=== PATIENT | female | born 1980 | race Caucasian/White ===

== ENCOUNTER 2017-08-19 19:56 | Inpatient (IN) | payer MEDICAID ==
[~2017-08-19] VITALS: Ht 160 cm; Wt 52.0 kg
[~2017-08-19 19:56] MED LIST: IBUP600 PO; OXYC1SOL5 PO; PERI8.6T PO; PREN0.01 PO
[2017-08-19] MEDS: LACTATED RINGER'S 1000 ML INJ 1,000 ML IV SCH ×2 (20:00→21:41)
[2017-08-19 20:07] VITALS: BP 128/90; PULSE 106
[2017-08-19] MEDS ORDERED: SODIUM CHLORIDE 0.9% FLUSH 10 ML FLUSH IV FLUSH PRN ×2 (20:30→21:00)
--- NOTE | 2017-08-19 20:31 | PD ---
HPI Chief Complaint Vaginal bleeding Travel History International Travel<30 Days: No Contact w/Intl Traveler<30Days: No Known Affected Area: No History of Present Illness HPI 36-year-old , IUP at 34.5 care with Andree Chavez and complicated by history of prior delivery, regular crack cocaine use, tobacco use The patient presents reporting vaginal bleeding that started at 7 PM. She used crack cocaine which she smokes approximately an hour prior to the onset of vaginal bleeding. She reports that this was a gush of bleeding so she called EMS. She reports that she had occasional contractions today which were irregular but increased about 5 PM. She is unable to quantify how frequent she is having these contractions. There are no attempted treatments or alleviating factors. She reports good movement. She denies any leaking of fluid. Weeks Gestation: 34 Para: 3 : 9 Miscarriage: 1 : 4 History Past Medical History Medical History: Denies Significant Hx Obstetric History Obstetric History 05 3 2 C/S 1 SAB 1 EAB 4 Past Surgical History Narrative Surgical C/S x1, hernia repair Family History Narrative Family History DM, HTN, CVA Social History Alcohol Use: No Substance Abuse: Yes Allergies-Medications (Allergen,Severity, Reaction): Coded Allergies: No Known Allergies (Verified , 08/21/14) Home Meds Active Scripts Sennosides-Docusate Sodium (Rose-Colace 8.6-50 mg) 1 Tab Tab, 2 TAB PO BID Y for CONSTIPATION for 30 Days, TAB Prov:Savanna Parra MD, R3 02/12/16 Oxycodone W/ Acetaminophen (Oxycodone/Acetaminophen 5-325 mg/5Ml) 5 mg/325 mg Tab, 1 TAB PO Q4H Y for PAIN SCALE 3 TO 5, #20 TAB Prov:Savanna Parra MD, R3 02/12/16 Ibuprofen (Motrin 600 Mg Tab) 600 Mg Tab, 600 MG PO Q6H Y for CRAMPING for 30 Days, TAB Prov:Savanna Parra MD, R3 02/12/16 Reported Medications Multivit/Min/Fol Ac/Iron/Pren ( Vit ( Plus)) Tab, 1 TAB PO DAILY, TAB 02/09/16 Review of Systems Except as stated in HPI: all other systems reviewed are Neg (Complete ROS was performed) Genitourinary: Vaginal Bleeding Physical Exam Vital Signs Date Time Temp Pulse Resp B/P (MAP) Pulse Ox O2 Delivery O2 Flow Rate FiO2 08/19/17 20:07 106 128/90 (103) Narrative GENERAL: Well-nourished, well-developed patient. SKIN: Warm and dry. HEAD: Normocephalic and atraumatic. EYES: No scleral icterus. No injection or drainage. ENT: No nasal drainage noted. Mucous membranes pink. Airway patent. NECK: Supple, trachea midline. No JVD. CARDIOVASCULAR: Regular rate and rhythm without murmurs, gallops, or rubs. RESPIRATORY: Breath sounds equal bilaterally. No accessory muscle use. BREASTS: Deferred ABDOMEN/GI: Abdomen soft, non-tender, bowel sounds present, no rebound, no guarding Gravid GENITOURINARY: External Genitalia: intact and normal in appearance, normal BUS glands. Speculum examination was performed which showed a small amount of pooling of dark blood in the vagina approximately 15 cc. There is a small amount of dark blood at the cervical os but no brisk or active bleeding was noted. The cervix visually appeared closed and thick. SVE was performed and was closed/thick/high /posterior. FHT's: heart tones are in the 120s baseline with moderate long-term variability, good accelerations, no decelerations with category 1 tracing and reactive NST EXTREMITIES: No cyanosis or edema. BACK: Nontender without obvious deformity. NEUROLOGICAL: Awake and alert. Motor and sensory grossly within normal limits. Five out of 5 muscle strength in all muscle groups. Normal speech. Psychiatric: Grossly normal memory and affect Musculoskeletal: Grossly normal range of motion, gait, muscle strength Data Data Orders Orders Vital Signs (Adult) .ON ADMISSION (08/19/17 20:00) ^ Labor Status (08/19/17 20:00) Urinalysis - C+S If Indicated (08/19/17 20:00) ^ Non Stress Test (08/19/17 20:00) Cbc No Diff, Includes Plts (08/19/17 20:00) Comprehensive Metabolic Panel (08/19/17 20:00) Lactated Ringer's 1000 Ml Inj (Lr 1000 M (08/19/17 20:00) Ob/Psych Drug Screen, Urine (08/19/17 20:00) Admit To Inpatient (08/19/17 ) Diet Npo (08/20/17 Breakfast) Vital Signs (Adult) [id number] AWAKE (08/19/17 20:21) Heart (08/19/17 20:21) Activity Bed Rest With Brp (08/19/17 20:21) Sodium Chloride 0.9% Flush (Ns Flush) (08/19/17 21:00) Sodium Chloride 0.9% Flush (Ns Flush) (08/19/17 20:30) Us Ob Limited (08/19/17 20:21) Hold Clot (08/19/17 20:21) Inpatient Certification (08/19/17 ) Prothrombin Time / Inr (Pt) (08/19/17 20:28) Act Partial Throm Time (Ptt) (08/19/17 20:28) Fibrinogen (08/19/17 20:28) MDM Plan Assessment/plan: 1. IUP at 34.5 2. Vaginal bleeding: Vaginal bleeding occurred after cocaine use, will obtain OB ultrasound to evaluate placenta, no active bleeding noted on exam however will monitor closely. CBC and type and cross 4 units was obtained, PT and PTT were obtained. 3. Cocaine use: UDS obtained. 4. Prior delivery: Patient was consented for repeat delivery with risks benefits and alternatives discussed at length including but not limited to pain, infection, bleeding, injury to other organs like the bladder, bowels, nerves, vessels or baby, need for repeat operation, need for hysterectomy, need for blood transfusion, wound infection and breakdown and other possible complications. We discussed the indications for delivery if she continues to have heavy bleeding, if she enters active labor, or if there is concerns from the heart rate tracing. At this point the patient does not appear to be having active bleeding; however, she is izabel so will start with a dose of IV pain medicine and Vistaril. Cervical examination is closed. All of her questions were answered and consent was signed. 5. The patient desires permanent surgical sterilization: She had her papers signed on 08/12/17. We discussed this is a permanent and irreversible procedure and cannot be undone. We discussed the risks including but not limited to surgical risks as above as well as tubal regret, failure rate of approximately 1%, risk of ectopic if failure occurs. We discussed alternatives including the long-acting reversible contraceptives like Mirena and ParaGard. We discussed other options like Depo-Provera, the pill, the patch , and others. The patient is certain she desires no further biological children. 6. well-being: Reassuring testing with reactive NST and category 1 heart rate tracing. We'll continue to monitor tonight and proceed with delivery if indication of nonreassuring well-being arises or for other standard indications. 7. Tobacco use Carolyn Woodall MD Aug 19, 2017 20:31
--- NOTE | 2017-08-19 20:32 | PD ---
History of Present Illness History of Present Illness NST report Indications: IUP at 34.5, cocaine/crack use, prior section 1, vaginal bleeding heart rate tracing with heart rate in the 120s, moderate long-term variability, good accelerations, no decelerations are noted at this time the patient has a category 1 heart rate tracing and a reactive NST. Final diagnosis: IUP at 34.5, cocaine/crack use, prior section 1, vaginal bleeding, reassuring testing follow-up: Continue continuous monitoring Carolyn Woodall MD Aug 19, 2017 20:32
[2017-08-19] MEDS ORDERED: MISOPROSTOL 100 MCG TAB VAGINAL ONE (21:00)
[2017-08-19] MEDS ORDERED: SODIUM CHLORIDE 0.9% FLUSH 10 ML FLUSH IV FLUSH SCH (21:00)
[2017-08-19 21:36] LABS: HEMATOCRIT 33.3 % (35.0-46.0); MEAN CELL VOLUME 87.1 FL (80.0-100.0); MEAN CORPUSCULAR HEMOGLOBIN 28.9 PG (27.0-34.0); MEAN CORPUSCULAR HGB CONC 33.2 % (32.0-36.0); PLATELET COUNT 266 TH/MM3 (150-450); RED BLOOD COUNT 3.82 MIL/MM3 (4.00-5.30); RED CELL DISTRIBUTION WIDTH 14.5 % (11.6-17.2); REVIEW FLAG FINAL; WHITE BLOOD COUNT 17.7 TH/MM3 (4.0-11.0)
[2017-08-19] MEDS ORDERED: MORPHINE SULFATE 4 MG/ML INJ IM ONE (21:45)
[2017-08-19] MEDS ORDERED: hydrOXYzine PAMOATE 25 MG CAP PO ONE (21:45)
[2017-08-19 21:49] LABS: BLOOD, URINE LARGE (NEG); COMMENT (UR) CULT NOT INDICATED; CULTURE IF INDICATED CULT NOT INDICATED; GLUCOSE,URINE NEG (NEG); KETONE, URINE TRACE mg/dL (NEG); MUCUS URINE FEW /lpf (OCC); NITRITE,URINE NEG (NEG); SQUAMOUS EPITHELIAL CELL URINE 2 /hpf (0-5); URINE COLOR YELLOW (YELLW/STRAW)
[2017-08-19 22:11] LABS: ANION GAP 12 MEQ/L (5-15); AST (GOT) 15 U/L (15-37); BICARBONATE 20.9 MEQ/L (21.0-32.0); BLOOD UREA NITROGEN 6 MG/DL (7-18); CHLORIDE 104 MEQ/L (98-107); GLOMERULAR FILTRATION RATE 152 ML/MIN (>89); POTASSIUM 3.7 MEQ/L (3.5-5.1); SODIUM (NA) 137 MEQ/L (136-145)
[2017-08-19 22:13] LABS: ALT (GPT) 15 U/L (10-53)
[2017-08-19 22:14] LABS: ALKALINE PHOSPHATASE 121 U/L (45-117); TOTAL BILIRUBIN ADULT 0.2 MG/DL (0.2-1.0)
[2017-08-19] MEDS: SODIUM CHLORIDE 0.9% FLUSH 10 ML FLUSH IV FLUSH SCH (22:18)
[2017-08-19 23:34] LABS: APTT (PATIENT) 26.3 SEC (24.3-30.1); INTERNATIONAL NORMALIZED RATIO 0.9 RATIO; PROTHROMBIN TIME - PATIENT 9.6 SEC (9.8-11.6)
[2017-08-20] VITALS (10 sets, daily range): BP systolic 100–119; BP diastolic 52–67; PULSE 87–97; RESP 18; TEMP 98–98.7
[2017-08-20] MEDS ORDERED: MISOPROSTOL 100 MCG TAB VAGINAL PRN (01:00)
--- NOTE | 2017-08-20 01:05 | HHI.HP ---
History & Physical H&P OB HISTORY AND PHYSICAL; DATE OF ADMISSION: 08/19/17 Patient Name: Kelsey Field Unit Number: [id number] Date of : 1980 Patient Status: Admitted Inpatient Attending Doctor: Carolyn Woodall MD HPI HPI Chief Complaint Vaginal bleeding Travel History International Travel<30 Days: No Contact w/Intl Traveler<30Days: No Known Affected Area: No History of Present Illness HPI 36-year-old , IUP at 34.5 care with Andree Chavez and complicated by history of prior delivery, regular crack cocaine use, tobacco use The patient presents reporting vaginal bleeding that started at 7 PM. She used crack cocaine which she smokes approximately an hour prior to the onset of vaginal bleeding. She reports that this was a gush of bleeding so she called EMS. She reports that she had occasional contractions today which were irregular but increased about 5 PM. She is unable to quantify how frequent she is having these contractions. There are no attempted treatments or alleviating factors. She reports good movement. She denies any leaking of fluid. Weeks Gestation: 34 Para: 3 : 9 Miscarriage: 1 : 4 History (Limited) History Past Medical History Medical History: Denies Significant Hx Obstetric History Obstetric History 05 3 2 C/S 1 SAB 1 EAB 4 Past Surgical History Narrative Surgical C/S x1, hernia repair Family History Narrative Family History DM, HTN, CVA Social History Alcohol Use: No Substance Abuse: Yes Allergies-Medications Allergies-Medications (Allergen,Severity, Reaction): Coded Allergies: No Known Allergies (Verified , 08/21/14) Home Meds Active Scripts Sennosides-Docusate Sodium (Rose-Colace 8.6-50 mg) 1 Tab Tab, 2 TAB PO BID Y for CONSTIPATION for 30 Days, TAB Prov:Savanna Parra MD, R3 02/12/16 Oxycodone W/ Acetaminophen (Oxycodone/Acetaminophen 5-325 mg/5Ml) 5 mg/325 mg Tab, 1 TAB PO Q4H Y for PAIN SCALE 3 TO 5, #20 TAB Prov:Savanna Parra MD, R3 02/12/16 Ibuprofen (Motrin 600 Mg Tab) 600 Mg Tab, 600 MG PO Q6H Y for CRAMPING for 30 Days, TAB Prov:Svaanna Parra MD, R3 02/12/16 Reported Medications Multivit/Min/Fol Ac/Iron/Pren ( Vit ( Plus)) Tab, 1 TAB PO DAILY, TAB 02/09/16 ROS Review of Systems Except as stated in HPI: all other systems reviewed are Neg (Complete ROS was performed) Genitourinary: Vaginal Bleeding Physical Exam Physical Exam Vital Signs Date Time Temp Pulse Resp B/P (MAP) Pulse Ox O2 Delivery O2 Flow Rate FiO2 08/19/17 20:07 106 128/90 (103) Narrative GENERAL: Well-nourished, well-developed patient. SKIN: Warm and dry. HEAD: Normocephalic and atraumatic. EYES: No scleral icterus. No injection or drainage. ENT: No nasal drainage noted. Mucous membranes pink. Airway patent. NECK: Supple, trachea midline. No JVD. CARDIOVASCULAR: Regular rate and rhythm without murmurs, gallops, or rubs. RESPIRATORY: Breath sounds equal bilaterally. No accessory muscle use. BREASTS: Deferred ABDOMEN/GI: Abdomen soft, non-tender, bowel sounds present, no rebound, no guarding Gravid GENITOURINARY: External Genitalia: intact and normal in appearance, normal BUS glands. Speculum examination was performed which showed a small amount of pooling of dark blood in the vagina approximately 15 cc. There is a small amount of dark blood at the cervical os but no brisk or active bleeding was noted. The cervix visually appeared closed and thick. SVE was performed and was closed/thick/high /posterior. FHT's: heart tones are in the 120s baseline with moderate long-term variability, good accelerations, no decelerations with category 1 tracing and reactive NST EXTREMITIES: No cyanosis or edema. BACK: Nontender without obvious deformity. NEUROLOGICAL: Awake and alert. Motor and sensory grossly within normal limits. Five out of 5 muscle strength in all muscle groups. Normal speech. Psychiatric: Grossly normal memory and affect Musculoskeletal: Grossly normal range of motion, gait, muscle strength Data Data Data Orders Orders Vital Signs (Adult) .ON ADMISSION (08/19/17 20:00) ^ Labor Status (08/19/17 20:00) Urinalysis - C+S If Indicated (08/19/17 20:00) ^ Non Stress Test (08/19/17 20:00) Cbc No Diff, Includes Plts (08/19/17 20:00) Comprehensive Metabolic Panel (08/19/17 20:00) Lactated Ringer's 1000 Ml Inj (Lr 1000 M (08/19/17 20:00) Ob/Psych Drug Screen, Urine (08/19/17 20:00) Admit To Inpatient (08/19/17 ) Diet Npo (08/20/17 Breakfast) Vital Signs (Adult) [id number] AWAKE (08/19/17 20:21) Heart (08/19/17 20:21) Activity Bed Rest With Brp (08/19/17 20:21) Sodium Chloride 0.9% Flush (Ns Flush) (08/19/17 21:00) Sodium Chloride 0.9% Flush (Ns Flush) (08/19/17 20:30) Us Ob Limited (08/19/17 20:21) Hold Clot (08/19/17 20:21) Inpatient Certification (08/19/17 ) Prothrombin Time / Inr (Pt) (08/19/17 20:28) Act Partial Throm Time (Ptt) (08/19/17 20:28) Fibrinogen (08/19/17 20:28) MDM MDM Plan Assessment/plan: 1. IUP at 34.5 2. Vaginal bleeding: Vaginal bleeding occurred after cocaine use, will obtain OB ultrasound to evaluate placenta, no active bleeding noted on exam however will monitor closely. CBC and type and cross 4 units was obtained, PT and PTT were obtained. 3. Cocaine use: UDS obtained. 4. Prior delivery: Patient was consented for repeat delivery with risks benefits and alternatives discussed at length including but not limited to pain, infection, bleeding, injury to other organs like the bladder, bowels, nerves, vessels or baby, need for repeat operation, need for hysterectomy, need for blood transfusion, wound infection and breakdown and other possible complications. We discussed the indications for delivery if she continues to have heavy bleeding, if she enters active labor, or if there is concerns from the heart rate tracing. At this point the patient does not appear to be having active bleeding; however, she is izabel so will start with a dose of IV pain medicine and Vistaril. Cervical examination is closed. All of her questions were answered and consent was signed. 5. The patient desires permanent surgical sterilization: She had her papers signed on 08/12/17. We discussed this is a permanent and irreversible procedure and cannot be undone. We discussed the risks including but not limited to surgical risks as above as well as tubal regret, failure rate of approximately 1%, risk of ectopic if failure occurs. We discussed alternatives including the long-acting reversible contraceptives like Mirena and ParaGard. We discussed other options like Depo-Provera, the pill, the patch , and others. The patient is certain she desires no further biological children. 6. well-being: Reassuring testing with reactive NST and category 1 heart rate tracing. We'll continue to monitor tonight and proceed with delivery if indication of nonreassuring well-being arises or for other standard indications. 7. Tobacco use Carolyn Woodall MD Aug 19, 2017 20:31 Carolyn Woodall MD Aug 20, 2017 01:04
--- NOTE | 2017-08-20 01:06 | HHI.PR ---
Subjective Remarks [facility] Patient continues to have reassuring heart rate tracing with baseline in the 120s, good accelerations, no decelerations and moderate long-term variability. She has the same pad same pad on as from admission. Her contractions have decreased in intensity and frequency and she is currently sleeping. She has received 1 dose of Celestone. We will continue close monitoring and proceed with delivery if indicated. Objective Vital Signs Date Time Temp Pulse Resp B/P (MAP) Pulse Ox O2 Delivery O2 Flow Rate FiO2 08/19/17 20:07 106 128/90 (103) Result Diagram: 08/19/17204908/19/172049 Carolyn Woodall MD Aug 20, 2017 01:06
[2017-08-20] MEDS: LACTATED RINGER'S 1000 ML INJ 1,000 ML IV SCH ×2 (04:11→20:00)
[2017-08-20 06:05] LABS: HEMATOCRIT 30.3 % (35.0-46.0); MEAN CORPUSCULAR HEMOGLOBIN 28.5 PG (27.0-34.0); MEAN CORPUSCULAR HGB CONC 32.7 % (32.0-36.0); PLATELET COUNT 250 TH/MM3 (150-450); RED BLOOD COUNT 3.48 MIL/MM3 (4.00-5.30); RED CELL DISTRIBUTION WIDTH 14.2 % (11.6-17.2); REVIEW FLAG FINAL; WHITE BLOOD COUNT 12.1 TH/MM3 (4.0-11.0)
[2017-08-20] MEDS: SODIUM CHLORIDE 0.9% FLUSH 10 ML FLUSH IV FLUSH SCH (09:00)
--- NOTE | 2017-08-20 09:07 | HHI.PR ---
Subjective Remarks [facility] [place] NST report Indications: IUP at 34 6, vaginal bleeding, cocaine use, scant care, vaginal bleeding, previous section NST: heart rate baseline in the 120s with moderate long-term variability, good accelerations, no decelerations with a category 1 heart rate tracing and reactive NST Final diagnosis: IUP at 34.6, vaginal bleeding, cocaine use, scant care , vaginal bleeding, prior section, reassuring testing Follow-up: Continue monitoring Objective Vital Signs Date Time Temp Pulse Resp B/P (MAP) Pulse Ox O2 Delivery O2 Flow Rate FiO2 08/20/17 02:53 94 119/53 (75) 08/20/17 02:50 98.3 18 08/19/17 20:07 106 128/90 (103) Result Diagram: 08/20/17 0500 08/19/172049 Carolyn Woodall MD Aug 20, 2017 09:07
--- NOTE | 2017-08-20 09:23 | HHI.PR ---
Subjective Remarks OB HD #2 IUP at 34 6, vaginal bleeding, cocaine use, scant care, vaginal bleeding, previous section S: Patient reports her contractions have decreased significantly in frequency and intensity. She reports her vaginal bleeding has decreased. She reports that the blood is now dark and just a streak on her pad. She changed pads that 1 AM with a streak that was 1" x 5-6 inches, 5 AM that was 1" x 2.5-3 inches, and 8 AM that was about 1" x 5-6 inches. She denies heavy or active bleeding. She denies bright red bleeding She reports good movement. She denies any nausea vomiting fever chills or other concerns. Her complete review of systems is negative today. O: Vital signs are stable and she is afebrile A and O 3, NAD CTAB RRR Gravid, fundus nontender, NABS Calves nontender Musculoskeletal: Grossly normal Psychiatric: Grossly normal HEENT: Grossly normal Skin: Grossly normal Neuro: Grossly normal Assessment/plan: 1. IUP at 35.6 2. Vaginal bleeding: Vaginal bleeding has improved significantly. Hemoglobin 9.9 this morning, will repeat in 8 hours. Likely secondary to cocaine use with possible small abruption. However contractions have decreased in both intensity and frequency, vaginal bleeding is light, and is reassuring, continue monitoring today. Patient is consented for repeat delivery with bilateral tubal ligation when indicated 3. Crack Cocaine use: Patient presented with 4. Previous : Patient consented for repeat 5. Desires permanent surgical sterilization patient consented. She signed her tubal papers on 08/12/17 however she is premature 6. Prematurity: Status post Celestone 1, will repeat today 7. well-being: Reassuring testing with reactive NST, continue monitoring 8. A+ Objective Vital Signs Date Time Temp Pulse Resp B/P (MAP) Pulse Ox O2 Delivery O2 Flow Rate FiO2 08/20/17 02:53 94 119/53 (75) 08/20/17 02:50 98.3 18 08/19/17 20:07 106 128/90 (103) Result Diagram: 08/20/17 0500 08/19/17 2050 Carolyn Woodall MD Aug 20, 2017 09:23
[2017-08-20 11:46] LABS: HEMATOCRIT 31.1 % (35.0-46.0); MEAN CELL VOLUME 86.2 FL (80.0-100.0); MEAN CORPUSCULAR HEMOGLOBIN 28.7 PG (27.0-34.0); MEAN CORPUSCULAR HGB CONC 33.4 % (32.0-36.0); PLATELET COUNT 253 TH/MM3 (150-450); RED BLOOD COUNT 3.61 MIL/MM3 (4.00-5.30); RED CELL DISTRIBUTION WIDTH 14.3 % (11.6-17.2); REVIEW FLAG FINAL; WHITE BLOOD COUNT 13.2 TH/MM3 (4.0-11.0)
[2017-08-21] MEDS: LACTATED RINGER'S 1000 ML INJ 1,000 ML IV SCH (04:00)
[2017-08-21 06:09] VITALS: BP 103/53; PULSE 89
[2017-08-21 06:10] VITALS: RESP 18; TEMP 98
[2017-08-21 08:15] VITALS: BP 105/48; PULSE 89; RESP 20; TEMP 97.9
--- NOTE | 2017-08-21 09:10 | HHI.DCPOC ---
Discharge Care Plan Diagnosis: (1) Vaginal bleeding during , antepartum Report Symptoms to Your Doctor -Vaginal bleeding -Leakage of fluid -Painful, regular contractions -No movement in 12 hours or ,3 movement in 1 hr or ,10 movements in 2 hours of focused counting Goals to Promote Your Health * To prevent worsening of your condition and complications * To maintain your health at the optimal level Directions to Meet Your Goals Take your medications as prescribed Follow your dietary instruction Follow activity as directed Ensure plenty of rest for recovery Drink fluids for hydration Keep your appointments as scheduled Take your immunizations and boosters as scheduled If your symptoms worsen call your PCP, if no PCP go to Urgent Care Center or Emergency Room Smoking is Dangerous to Your Health. Avoid second hand smoke Call the 24-hour crisis hotline for domestic abuse at Willow Blanc MD R1 Aug 21, 2017 09:10
--- NOTE | 2017-08-21 09:40 | PD.OB.ANTE ---
Subjective Diagnosis: (1) Vaginal bleeding during , antepartum Diagnosis: Principal (2) Placental abruption in third trimester Interval History Patient states she is doing well, no vaginal bleeding in the last 24 hours, vitals and hemoglobin have been stable. No other complaints. Discussed switching her care from [facility] [place] [facility] today, due to better resources at [facility] that could best address her problem. Patient is agreeable to this plan. Also agreeable to following up with OB diagnostics for twice weekly testing. Objective Vital Signs Vital Signs Date Time Temp Pulse Resp B/P (MAP) Pulse Ox O2 Delivery O2 Flow Rate FiO2 08/21/17 08:15 97.9 89 20 105/48 (67) 08/21/17 06:10 98.0 18 08/21/17 06:09 89 103/53 (70) 08/20/17 21:00 98.6 18 08/20/17 20:37 97 101/59 (73) 08/20/17 19:24 98.1 08/20/17 17:26 98.7 18 08/20/17 17:26 95 101/56 (71) 08/20/17 13:56 98.0 97 18 113/52 (72) 08/20/17 10:37 98.1 08/20/17 10:00 18 Lab & Micro Results Test 08/20/17 11:18 White Blood Count 13.2 TH/MM3 Red Blood Count 3.61 MIL/MM3 Hemoglobin 10.4 GM/DL Hematocrit 31.1 % Mean Corpuscular Volume 86.2 FL Mean Corpuscular Hemoglobin 28.7 PG Mean Corpuscular Hemoglobin Concent 33.4 % Red Cell Distribution Width 14.3 % Platelet Count 253 TH/MM3 Mean Platelet Volume 9.3 FL Assessment and Plan Problem List: (1) Vaginal bleeding during , antepartum ICD Codes: O46.90 - Antepartum hemorrhage, unspecified, unspecified trimester Status: Resolved Assessment and Plan Resolved. Likely secondary to focal abruption. Will need monitoring until delivery. -Plan to set up care at [facility] ([facility]) - scheduled for 09/11/16 -BPP and NST tomorrow at OB [facility] scheduled. Will need twice weekly NST testing thereafter Willow Blanc MD R1 Aug 21, 2017 09:40
== END 2017-08-21 10:49 | disposition home or self-care (01) | DRG 781 ==
LOC: HOBED 19:56 → H2EB 20:47 → H2EA 21:49
PROVIDERS: ADMIT Obstetrics & Gynecology; ATTEND Obstetrics & Gynecology
DX: O45.93 Premature separation of placenta, unspecified, third trimester (principal); O99.323 Drug use complicating pregnancy, third trimester; F17.210 Nicotine dependence, cigarettes, uncomplicated; Z3A.34 34 weeks gestation of pregnancy; F14.90 Cocaine use, unspecified, uncomplicated; O99.333 Smoking (tobacco) complicating pregnancy, third trimester
CPT/HCPCS: 59025; 76816; 76819; 80053; 80307; 81001; 85027; 85384; 85610; 85730; 86850; 86900; 86901; 86920; G0481; J2270; J3010; J7120; Q0177

== ENCOUNTER 2017-08-28 14:22 | Emergency (ER) | payer MEDICAID ==
[~2017-08-28 14:22] MED LIST changes: -IBUP600 PO; -OXYC1SOL5 PO; -PERI8.6T PO
--- NOTE | 2017-08-28 15:35 | PD ---
HPI Chief Complaint Leaking fluid Date Seen: Aug 28, 2017 Time Seen: 15:37 Travel History International Travel<30 Days: No Contact w/Intl Traveler<30Days: No Known Affected Area: No History of Present Illness HPI Patient is 36-year-old white female a 5 now 36 weeks who goes to [facility] for care. She presents planning a leakage of some fluid was very minimal she was unsure so she wanted to get checked, she denies pain or bleeding. heart rate tracing is reactive she is izabel about every 6 or 7 minutes but not feeling them. 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 Alcohol Use: Yes Tobacco Use: Yes Substance Abuse: Yes Allergies-Medications (Allergen,Severity, Reaction): Coded Allergies: No Known Allergies (Verified , 08/21/14) Home Meds Reported Medications Multivit/Min/Fol Ac/Iron/Pren ( Vit ( Plus)) 27 Mg Iron-1 Mg Tab , 1 TAB PO DAILY, TAB 02/09/16 Review of Systems General / Constitutional: No: Fever, Weight Gain, Chills, Other Eyes: No: Diploplia, Blurred Vision, Visual changes, Pain, Photophobia HENT: No: Headaches, Vertigo, Lightheadedness Cardiovascular: No: Irregular Rhythm, Chest Pain or Discomfort, Palpitations, Tachycardia, Syncope, Varicosities, Edema, Cyanosis Respiratory: No: Cough, Short of Breath, Other Gastrointestinal: No: Nausea, Vomiting, Diarrhea Genitourinary: No: Decreased Urinary Output, Oliguria Musculoskeletal: No: Limited ROM, Weakness, Cramping, Edema, Pain Skin: No Rash, No Itching, No Dryness, No Lumps, No Change in Pigmentation, No Change in Nails, No Alopecia, No Lesions Neurologic: No: Weakness, Dizziness, Syncope, Focal Abnormalities, Coordination Problem, Headache, Slurred Speech, Seizures Psychiatric: No: Depression, Suicidal Ideations, Homicidal Ideation Endocrine: No: Heat Intolerance, Cold Intolerance, Polydipsia, Polyuria, Other Physical Exam Narrative GENERAL: Well-nourished, well-developed patient. SKIN: Warm and dry. HEAD: Normocephalic and atraumatic. EYES: No scleral icterus. No injection or drainage. ENT: No nasal drainage noted. Mucous membranes pink. Airway patent. NECK: Supple, trachea midline. No JVD. CARDIOVASCULAR: Regular rate and rhythm without murmurs, gallops, or rubs. RESPIRATORY: Breath sounds equal bilaterally. No accessory muscle use. BREASTS: Bilateral exam showed no masses , no retractions, no nipple discharge. ABDOMEN/GI: Abdomen soft, non-tender, bowel sounds present, no rebound, no guarding Gravid to [-36] weeks size Fundal Height: [-36] GENITOURINARY: External Genitalia: intact and normal in appearance BUS glands: [-] Cervix: [Posterior-] Dilatation: [-Closed] Effacement: [-] Thick Station: [-3] Presentation: [-vtx] Membranes: [intact amnio sure negative] Uterine Contractions: [-] Every 6-7 minutes FHT's: Category: [1-] Baseline: [-133] Reactive: [yes-] Variability: mod[-] Decels: [none-] EXTREMITIES: No cyanosis or edema. BACK: Nontender without obvious deformity. No CVA tenderness. NEUROLOGICAL: Awake and alert. Motor and sensory grossly within normal limits. Five out of 5 muscle strength in all muscle groups. Normal speech. Data Data Labs Amnio sure negative MDM Interpretation(s) 36-year-old white female a 5 now at 36 weeks who goes to [facility] for care and presents planning of leakage of fluid per vagina. She had a small amount leakage was not sure if it was her water was not so she came in to be checked, she denies bleeding or pain. She is izabel every 6 cm cervix is closed. She had an amnio sure prior to exam and was negative Plan Plan to discharge patient home to normal activities for to observation to watch for any further leakage or other problem. sHe is to follow-up with her OB provider. Diagnosis Diagnosis: Primary Impression: No leakage of amniotic fluid into vagina Additional Impressions: History of drug use 36 weeks gestation of Disposition: DISCHARGE HOME Condition: Stable Patient Instructions: General Instructions Departure Forms: Tests/Procedures Pasha Holloway II, MD Aug 28, 2017 15:35
== END 2017-08-28 15:40 | disposition home or self-care (01) ==
LOC: HOBED 14:22
DX: O26.893 Other specified pregnancy related conditions, third trimester (principal); O99.333 Smoking (tobacco) complicating pregnancy, third trimester; Z3A.36 36 weeks gestation of pregnancy
CPT/HCPCS: 84112; 99283

== ENCOUNTER 2017-08-30 15:37 | Emergency (ER) | payer MEDICAID ==
[2017-08-30] MEDS ORDERED: LACTATED RINGER'S 1000 ML INJ 500 ML IV ONE (16:30)
[2017-08-30] MEDS ORDERED: TERBUTALINE INJ 1 MG/ML AMP SQ ONE (16:30)
--- NOTE | 2017-08-30 16:42 | PD ---
HPI Chief Complaint 36 weeks and 2 days Uterine contractions Left sided abdominal pain Date Seen: Aug 30, 2017 Time Seen: 16:25 Travel History International Travel<30 Days: No Contact w/Intl Traveler<30Days: No Known Affected Area: No History of Present Illness HPI Pt is a 36 yo at 36 weeks and 2 days. EDC 09/25/2017 and has scheduled repeat LTCS 09-11-2017. care with [facility] complicated by episode of vaginal bleeding. No previa noted on US. Pt has twice BPPs, last 08-28-2018 wnl. H/o substance abuse. Denies any vaginal bleeding. Feels movements 'reduced'. pain over keft lower quadrant only with movement. Reports contractions since 14:30. Weeks Gestation: 36 Para: 3 : 9 History Past Medical History Narrative Medical Substance abuse Obstetric History Obstetric History Previous section x 1, apparently with microcephaly x2 SVDs Past Surgical History Narrative Surgical previous C section Inguinal hernia repair at 7 weeks Family History Family History: Negative Social History Alcohol Use: No Tobacco Use: Yes Substance Abuse: Yes Allergies-Medications (Allergen,Severity, Reaction): Coded Allergies: No Known Allergies (Verified , 08/21/14) Home Meds Reported Medications Multivit/Min/Fol Ac/Iron/Pren ( Vit ( Plus)) 27 Mg Iron-1 Mg Tab , 1 TAB PO DAILY, TAB 02/09/16 Review of Systems Except as stated in HPI: all other systems reviewed are Neg Physical Exam Narrative GENERAL: Well-nourished, well-developed patient. SKIN: Warm and dry. HEAD: Normocephalic and atraumatic. EYES: No scleral icterus. No injection or drainage. ENT: No nasal drainage noted. Mucous membranes pink. Airway patent. NECK: Supple, trachea midline. No JVD. CARDIOVASCULAR: Regular rate and rhythm without murmurs, gallops, or rubs. RESPIRATORY: Breath sounds equal bilaterally. No accessory muscle use. BREASTS: Bilateral exam showed no masses , no retractions, no nipple discharge. ABDOMEN/GI: Abdomen soft, non-tender, bowel sounds present, no rebound, no guarding NO TENDERNESS OVER PFANNENSTEIL SCAR Gravid to [36] weeks size Fundal Height: [36] GENITOURINARY: External Genitalia: intact and normal in appearance BUS glands: [wnl] Cervix: [soft] Dilatation: [closed] Effacement: [40%] Station: [-3] Presentation: [vertex] Membranes: [intact] Uterine Contractions: [2-4 minutes] FHT's: Category: [1] Baseline: [120s] Reactive: [-] Variability: [good] Decels: [none] EXTREMITIES: No cyanosis or edema. BACK: Nontender without obvious deformity. No CVA tenderness. NEUROLOGICAL: Awake and alert. Motor and sensory grossly within normal limits. Five out of 5 muscle strength in all muscle groups. Normal speech. Data Data Vital Signs Reviewed: Yes [facility] Medical Record Reviewed: Yes Plan Pt is a 36 yo at 36 weeks and 2 days. Presents with uterine contractions. Cervix is closed and long. No vaginal bleeding noted status reassuring. Will give IV LR bolus, and give Terbutaline After IV fluids/ Terbutaline, contractions have resolved, and patient reports feeling better. We will dischrgae home. Has BPP and office visit on Friday. Diagnosis Diagnosis: Primary Impression: Abdominal pain Additional Impressions: with 36 completed weeks gestation Premature uterine contractions Disposition: DISCHARGE HOME Condition: Good Adelso Dobbs MD Aug 30, 2017 16:42
== END 2017-08-30 18:26 | disposition home or self-care (01) ==
LOC: HOBED 15:37
DX: O26.893 Other specified pregnancy related conditions, third trimester (principal); R10.9 Unspecified abdominal pain; O99.333 Smoking (tobacco) complicating pregnancy, third trimester; Z3A.36 36 weeks gestation of pregnancy
CPT/HCPCS: 59025; 96372; 99284; J3105; J7120

== ENCOUNTER 2017-08-31 13:35 | Emergency (ER) | payer MEDICAID ==
--- NOTE | 2017-08-31 14:32 | PD ---
HPI Chief Complaint Contractions Date Seen: Aug 31, 2017 Time Seen: 14:20 Travel History International Travel<30 Days: No Contact w/Intl Traveler<30Days: No Known Affected Area: No History of Present Illness HPI 36-year-old white female 36 weeks PCS for RCS BTL 09/11 sees [facility] for care presents combining contractions, patient's been here yesterday for the same thing she was here 3 or 4 days before that same thing, no bleeding or leakage of fluid. Baby is active. heart rate tracing is reactive. And she is having irregular contractions. Weeks Gestation: 36 Para: 3 : 9 History Obstetric History Obstetric History 2 vaginal deliveries one Past Surgical History Narrative Surgical Family History Family History: Social History Alcohol Use: Yes Tobacco Use: Yes Substance Abuse: Yes Allergies-Medications (Allergen,Severity, Reaction): Coded Allergies: No Known Allergies (Verified , 08/21/14) Home Meds Reported Medications Multivit/Min/Fol Ac/Iron/Pren ( Vit ( Plus)) 27 Mg Iron-1 Mg Tab , 1 TAB PO DAILY, TAB 02/09/16 Review of Systems General / Constitutional: No: Fever, Weight Gain, Chills, Other Eyes: No: Diploplia, Blurred Vision, Visual changes, Pain, Photophobia HENT: No: Headaches, Vertigo, Lightheadedness Cardiovascular: No: Irregular Rhythm, Chest Pain or Discomfort, Palpitations, Tachycardia, Syncope, Varicosities, Edema, Cyanosis Respiratory: No: Cough, Short of Breath, Other Gastrointestinal: Abdominal Pain, No: Nausea, Vomiting, Diarrhea Genitourinary: No: Decreased Urinary Output, Oliguria Musculoskeletal: No: Limited ROM, Weakness, Cramping, Edema, Pain Skin: No Rash, No Itching, No Dryness, No Lumps, No Change in Pigmentation, No Change in Nails, No Alopecia, No Lesions Neurologic: No: Weakness, Dizziness, Syncope, Focal Abnormalities, Coordination Problem, Headache, Slurred Speech, Seizures Psychiatric: No: Depression, Suicidal Ideations, Homicidal Ideation Endocrine: No: Heat Intolerance, Cold Intolerance, Polydipsia, Polyuria, Other Physical Exam Narrative GENERAL: Well-nourished, well-developed patient. SKIN: Warm and dry. HEAD: Normocephalic and atraumatic. EYES: No scleral icterus. No injection or drainage. ENT: No nasal drainage noted. Mucous membranes pink. Airway patent. NECK: Supple, trachea midline. No JVD. CARDIOVASCULAR: Regular rate and rhythm without murmurs, gallops, or rubs. RESPIRATORY: Breath sounds equal bilaterally. No accessory muscle use. BREASTS: Bilateral exam showed no masses , no retractions, no nipple discharge. ABDOMEN/GI: Abdomen soft, non-tender, bowel sounds present, no rebound, no guarding Gravid to [-36] weeks size Fundal Height: [36-] GENITOURINARY: External Genitalia: intact and normal in appearance BUS glands: [-] Cervix: [post-] Dilatation: [-1] Effacement: [-50] Station: [-3] Presentation: [vtx-] Membranes: [intact ] Uterine Contractions: [irreg-] FHT's: Category: [1-] Baseline: [133-] Reactive: [yes-] Variability: [mod-] Decels: [none-] EXTREMITIES: No cyanosis or edema. BACK: Nontender without obvious deformity. No CVA tenderness. NEUROLOGICAL: Awake and alert. Motor and sensory grossly within normal limits. Five out of 5 muscle strength in all muscle groups. Normal speech. MDM Interpretation(s) 36-year-old white female previous 1 out 36 weeks and presents clinically contractions. With same complaints she's had this several times this past week always not in labor, on this visit to the OB ED she is having an irregular contraction pattern cervix is fingertip to 1 centimeter / 50%/ vertex is high in the pelvis. She was offered a pain shot but did not want that and I will take continue bedrest at home Plan Patient not in labor at this time FALSE labor pains [place] contractions, she is previous scheduled for repeat tubal ligation on September 11 and she'll be 38 weeks at that point Diagnosis Diagnosis: Primary Impression: False labor before 37 completed weeks of gestation Additional Impression: Previous section Disposition: 01 DISCHARGE HOME Condition: Stable Pasha Holloway II, MD Aug 31, 2017 14:32
== END 2017-08-31 14:45 | disposition home or self-care (01) ==
LOC: HOBED 13:35
DX: O47.03 False labor before 37 completed weeks of gestation, third trimester (principal); O34.219 Maternal care for unspecified type scar from previous cesarean delivery; O99.333 Smoking (tobacco) complicating pregnancy, third trimester; O99.323 Drug use complicating pregnancy, third trimester; O99.313 Alcohol use complicating pregnancy, third trimester; Z72.89 Other problems related to lifestyle; Z3A.36 36 weeks gestation of pregnancy
CPT/HCPCS: 59025

== ENCOUNTER → 2017-09-02 | Emergency (ER) | payer MEDICAID ==
[~2017-09-02] MED LIST changes: +IBUP1TAB7 PO; +OXYC1TAB63 PO; +SENN8.6T88 PO
--- NOTE | 2017-09-02 22:48 | PD ---
HPI Chief Complaint Contractions Date Seen: Sep 02, 2017 Travel History International Travel<30 Days: No Contact w/Intl Traveler<30Days: No Known Affected Area: No History of Present Illness HPI 36-year-old 9 para 3 at 36-5/7 weeks gestation who comes with complaint of increasing contractions this afternoon. She was in OB diagnostics earlier today and had a BPP of 10 of 10. She has had multiple recent visits for irregular contraction activity with cervical exam at her last visit of 1 cm 50% effaced. She denies any leakage of fluid, bleeding or abdominal pain. She is scheduled for repeat and tubal ligation on the at 38 weeks gestation. History Past Medical History Narrative Medical Substance abuse, positive cocaine screen on August 19 Obstetric History Obstetric History 2 vaginal deliveries, one prior care during this with [facility]. Third trimester admission for partial abruption. Past Surgical History Narrative Surgical Family History Family History: Negative Social History Alcohol Use: No Tobacco Use: Yes Substance Abuse: Yes Allergies-Medications (Allergen,Severity, Reaction): Coded Allergies: No Known Allergies (Verified , 08/21/14) Home Meds Reported Medications Multivit/Min/Fol Ac/Iron/Pren ( Vit ( Plus)) 27 Mg Iron-1 Mg Tab , 1 TAB PO DAILY, TAB 02/09/16 Review of Systems Except as stated in HPI: all other systems reviewed are Neg Physical Exam Narrative GENERAL: Well-nourished, well-developed patient. SKIN: Warm and dry. HEAD: Normocephalic and atraumatic. EYES: No scleral icterus. No injection or drainage. ENT: No nasal drainage noted. Mucous membranes pink. Airway patent. NECK: Supple, trachea midline. No JVD. CARDIOVASCULAR: Regular rate and rhythm without murmurs, gallops, or rubs. RESPIRATORY: Breath sounds equal bilaterally. No accessory muscle use. BREASTS: Bilateral exam showed no masses , no retractions, no nipple discharge. ABDOMEN/GI: Abdomen soft, non-tender, bowel sounds present, no rebound, no guarding Gravid to [-] weeks size Fundal Height: [-] GENITOURINARY: External Genitalia: intact and normal in appearance BUS glands: [-] Cervix: [-] Dilatation: [1-] Effacement: [-50] Station: [--2] Presentation: [-Vertex] Membranes: [intact ] Uterine Contractions: [-Mild Q2 to 4] FHT's: Category: [-1] Baseline: [-] Reactive: [-Yes] Variability: [-] Decels: [-] EXTREMITIES: No cyanosis or edema. BACK: Nontender without obvious deformity. No CVA tenderness. NEUROLOGICAL: Awake and alert. Motor and sensory grossly within normal limits. Five out of 5 muscle strength in all muscle groups. Normal speech. Data Data Vital Signs Reviewed: Yes MDM Narrative Course / MDM Assessment: 36+ week intrauterine with uterine irritability without cervical change Plan: Continue the nasal care follow-up as needed for labor recheck. Disposition: 01 DISCHARGE HOME Condition: Good Aly Leon MD Sep 02, 2017 22:48
[2017-09-05] VITALS (12 sets, daily range): BP systolic 99–115; BP diastolic 73–88; PULSE 99–117; RESP 18; TEMP 98.5
== END | disposition home or self-care (01) ==
LOC: HOBED 21:33
DX: O47.03 False labor before 37 completed weeks of gestation, third trimester (principal); Z3A.36 36 weeks gestation of pregnancy
CPT/HCPCS: 59025; 80307

== ENCOUNTER 2017-09-05 15:12 | Inpatient (IN) | payer MEDICAID ==
[~2017-09-05] VITALS: Ht 160 cm; Wt 69.0 kg
[2017-09-05] VITALS (13 sets, daily range): BP systolic 96–118; BP diastolic 55–71; PULSE 72–109; RESP 16–22; TEMP 97.4–97.8; O2SAT 94–100
[~2017-09-05 15:12] MED LIST changes: -IBUP1TAB7 PO; -OXYC1TAB63 PO; -SENN8.6T88 PO
--- NOTE | 2017-09-05 15:32 | HHI.HP ---
HPI Chief Complaint Scheduled Date Seen: Sep 05, 2017 Time Seen: 16:08 (Willow Blanc MD R1) Chief Complaint 37 week intrauterine with prior section. This was complicated by active drug abuse in maternal medicine recommendation was for emergent delivery today. Date Seen: Sep 05, 2017 (Aly Leon MD) Travel History International Travel<30 Days: No Contact w/Intl Traveler<30Days: No Known Affected Area: No (Willow Blanc MD R1) History of Present Illness HPI Patient is a 36-year-old female at 37/1 weeks presenting for scheduled C- section. [facility] patient. care records limited. Patient states that on 19 August, she presented to the OB ED with vaginal bleeding. Patient was monitored for 2 days and discharged with plans to set up with [facility] and twice weekly NST testing afterwards. Bleeding resolved; however, was scheduled for 09/11/16 due to concern for bleeding secondary to focal abruption. Patient had no abnormal tests or imaging thus far. NST done today which shown to be reactive. Ultrasound done on 09/02/17 showed a BPP of 10/10, BHANU of 21.2. So far, patient has had no further episodes of vaginal bleeding since 08/19. Denies leakage of fluid. Endorses movement. Endorses occasional contractions. GBS is unknown. Weeks Gestation: 37 Para: 3 : 9 (Willow Blanc MD R1) History Past Medical History Narrative Medical Ulcerative colitis, no treatment (iWllow Blanc MD R1) Obstetric History Obstetric History 05 3 2 - 2003 and 2001 C/S 1 - 2015, emergency due to bradycardia, viable male delivered, microcephaly SAB 1 EAB 4 (Willow Blanc MD R1) Past Surgical History Surgical History: No Previous Surgery (Willow Blanc MD R1) Family History Family History: Negative (Willow Blanc MD R1) Social History Alcohol Use: Yes (occasional 1 drink or shot/month) Tobacco Use: Yes (10 pack years) Substance Abuse: Yes (cocaine, last use was before the Aug) (Willow Blanc MD R1) Allergies-Medications (Allergen,Severity, Reaction): Coded Allergies: No Known Allergies (Verified , 08/21/14) Home Meds Discontinued Reported Medications Multivit/Min/Fol Ac/Iron/Pren ( Vit ( Plus)) 27 Mg Iron-1 Mg Tab , 1 TAB PO DAILY, TAB 02/09/16 Review of Systems Except as stated in HPI: all other systems reviewed are Neg (Willow Blanc MD R1) Physical Exam Narrative GENERAL: Well-nourished, well-developed patient. SKIN: Warm and dry. HEAD: Normocephalic and atraumatic. EYES: No scleral icterus. No injection or drainage. ENT: No nasal drainage noted. Mucous membranes pink. Airway patent. NECK: Supple, trachea midline. No JVD. CARDIOVASCULAR: Regular rate and rhythm without murmurs, gallops, or rubs. RESPIRATORY: Breath sounds equal bilaterally. No accessory muscle use. ABDOMEN/GI: Abdomen soft, non-tender, bowel sounds present, no rebound, no guarding GENITOURINARY: FHT's: Category: 1 Baseline: 130 Reactive: Reactive Variability:moderate Decels: none EXTREMITIES: No cyanosis or edema. BACK: Nontender without obvious deformity. No CVA tenderness. NEUROLOGICAL: Awake and alert. Motor and sensory grossly within normal limits. Five out of 5 muscle strength in all muscle groups. Normal speech. (Willow Blanc MD R1) Caprini VTE Risk Assessment Caprini VTE Risk Assessment: No/Low Risk (score <= 1) Caprini Risk Assessment Model Point Value = 1 Point Value = 2 Point Value = 3 Point Value = 5 Age 41-60 Minor surgery BMI > 25 kg/m2 Swollen legs Varicose veins or History of unexplained or recurrent spontaneous Oral contraceptives or hormone replacement Sepsis (< 1 month) Serious lung disease, including pneumonia (< 1 month) Abnormal pulmonary function Acute myocardial infarction Congestive heart failure (< 1 month) History of inflammatory bowel disease Medical patient at bed rest Age 61-74 Arthroscopic surgery Major open surgery (> 45 min) Laparoscopic surgery (> 45 min) Malignancy Confined to bed (> 72 hours) Immobilizing plaster cast Central venous access Age >= 75 History of VTE Family history of VTE Factor V Leiden Prothrombin [id number] Lupus anticoagulant Anticardiolipin antibodies Elevated serum homocysteine Heparin-induced thrombocytopenia Other congenital or acquired thrombophilia Stroke (< 1 month) Elective arthroplasty Hip, pelvis, or leg fracture Acute spinal cord injury (< 1 month) Prophylaxis Regimen Total Risk Factor Score Risk Level Prophylaxis Regimen 0-1 Low Early ambulation 2 Moderate Order ONE of the following: *Sequential Compression Device (SCD) *Heparin 5000 units SQ BID 3-4 Higher Order ONE of the following medications: *Heparin 5000 units SQ TID *Enoxaparin/Lovenox 40 mg SQ daily (WT < 150 kg, CrCl > 30 mL/min) *Enoxaparin/Lovenox 30 mg SQ daily (WT < 150 kg, CrCl > 10-29 mL/min) *Enoxaparin/Lovenox 30 mg SQ BID (WT < 150 kg, CrCl > 30 mL/min) AND/OR *Sequential Compression Device (SCD) 5 or more Highest Order ONE of the following medications: *Heparin 5000 units SQ TID (Preferred with Epidurals) *Enoxaparin/Lovenox 40 mg SQ daily (WT < 150 kg, CrCl > 30 mL/min) *Enoxaparin/Lovenox 30 mg SQ daily (WT < 150 kg, CrCl > 10-29 mL/min) *Enoxaparin/Lovenox 30 mg SQ BID (WT < 150 kg, CrCl > 30 mL/min) AND *Sequential Compression Device (SCD) (Willow Blanc MD R1) Data Data Vital Signs Reviewed: Yes Labs A+ blood type Antibody screen negative Chlamydia negative GC negative Hepatitis B nonreactive HIV AG/AB nonreactive Hep C antibody nonreactive Varicelliform immune Rubella immune Sickle cell negative Hemoglobin A1c 5.2 (Willow Blanc MD R1) Assessment/Plan Problem List: (1) Cocaine abuse affecting ICD Codes: O99.320 - Drug use complicating , unspecified trimester; F14.10 - Cocaine abuse, uncomplicated (2) 37 weeks gestation of ICD Codes: Z3A.37 - 37 weeks gestation of Assessment and Plan Patient is a 36-year-old at 37/1 weeks admitted for scheduled secondary to the use of cocaine and high risk for abruption/ demise. - Give Ancef pre-op - this evening DW Dr. Leon (Willow Blanc MD R1) Attending Attestation Patient seen and evaluated with resident under direct supervision, agree with assessment and plan. (Aly Leon MD) Willow Blanc MD R1 Sep 05, 2017 15:32 Aly Leon MD Sep 05, 2017 20:31
[2017-09-05] MEDS ORDERED: LACTATED RINGER'S 1000 ML INJ 1,000 ML IV ONE (15:54)
[2017-09-05] MEDS ORDERED: ceFAZolin 2 GM PREMIX 50 ML IV SCH (17:00)
[2017-09-05] MEDS ORDERED: CITRIC ACID-SODIUM CITRATE LIQ 30 ML UDC PO SCH (17:30)
[2017-09-05 17:36] LABS: BASOPHIL # 0.1 TH/MM3 (0-0.2); BASOPHIL % 0.4 % (0.0-2.0); EOSINOPHIL # 0.1 TH/MM3 (0-0.4); HEMATOCRIT 35.6 % (35.0-46.0); HEMOGLOBIN 11.7 GM/DL (11.6-15.3); LYMPH % 20.1 % (9.0-44.0); LYMPHOCYTE # 2.6 TH/MM3 (1.0-4.8); MEAN CELL VOLUME 85.3 FL (80.0-100.0); MEAN CORPUSCULAR HGB CONC 32.9 % (32.0-36.0); MEAN PLATELET VOLUME 8.9 FL (7.0-11.0); MONO % 8.1 % (0.0-8.0); NEUT % 70.4 % (16.0-70.0); PLATELET COUNT 291 TH/MM3 (150-450); RED BLOOD COUNT 4.17 MIL/MM3 (4.00-5.30); WHITE BLOOD COUNT 12.8 TH/MM3 (4.0-11.0)
[2017-09-05 17:55] LABS: BACTERIA, URINE OCC /hpf; BILIRUBIN, URINE NEG (NEG); BLOOD, URINE NEG (NEG); GLUCOSE,URINE NEG (NEG); KETONE, URINE NEG (NEG); MUCUS URINE FEW /lpf (OCC); NITRITE,URINE NEG (NEG); PH, URINE 6.5 (5.0-8.5); SQUAMOUS EPITHELIAL CELL URINE 5 /hpf (0-5); TRICHOMONAS, URINE RARE; URINE COLOR YELLOW (YELLW/STRAW); URINE LEUKOCYTE ESTERASE LARGE (NEG)
[2017-09-05] MEDS: LACTATED RINGER'S 1000 ML INJ 1,000 ML IV SCH ×2 (18:32→21:00)
[2017-09-05] MEDS ORDERED: MORPHINE SULFATE PF 5 MG/10 ML VIAL ONE (19:28)
--- NOTE | 2017-09-05 20:39 | PD.OP ---
Operative Report Date of Surgery: Sep 05, 2017 Preoperative Diagnosis: 37 week with prior section and active drug use during this with recommendations today by maternal medicine for delivery today. #2 desired sterilization Postoperative Diagnosis: Same Procedure: Repeat lower uterine segment transverse section, bilateral tubal sterilization Anesthesia: Spinal Surgeon: Aly Leon [employer] Inspector(s): Daniella Taylor Operation and Findings: The patient was taken to the operating room and after administration of a satisfactory spinal anesthetic was prepped and draped in the dorsal supine position. The skin was incised transversely in the lower abdomen along the previous scar. The septations tissue were sharply dissected away and the fascia was nicked in the midline and extended bilaterally with scissors. The fascia was from the underlying muscle with sharp and blunt dissection. The muscles bluntly divided in the midline. The peritoneal cavity was bluntly entered. A transverse lower uterine segment hysterotomy was created and membranes were encountered and ruptured with maroon fluid noted. The vertex was elevated out of the pelvic inlet and delivered easily through the hysterotomy. With fundal pressure and gentle traction the remainder the infant followed easily. Delayed cord clamping was, was. The 6 lbs. 11 oz. female infant was passed to the waiting attendants with Apgars of 7 and 9 were given. Cord blood sample and cord blood gas segment were retrieved. The placenta delivered by fundal massage. The uterine cavity was wiped with a moist lap sponge. The placenta was sent for pathologic evaluation. The hysterotomy was closed with a running suture of 0 Monocryl. After observing excellent hemostasis normal-appearing ovaries and uterus were noted the right fallopian tube was abnormal in that the uterine end of the tube was apparently absent. A segment of this tube was elevated and ligated with 0 plain gut. This cord segment was excised and sent for pathology. The same technique was carried out on the opposite fallopian tube. The paracolic gutters and posterior cul-de-sac were evacuated of amniotic fluid and blood. The hysterotomy and tubal ligation sites were inspected for hemostasis and after assuring excellent hemostasis the fascia was closed anteriorly with #1 PDS. The subcutaneous tissue was closed with 3-0 Vicryl and the skin with 4-0 subcuticular Vicryl and tissue glue. Aly Leon MD Sep 05, 2017 20:39
[2017-09-05] MEDS ORDERED: ONDANSETRON HCL 4 MG/2 ML VIAL IV PUSH PRN (20:45)
[2017-09-05] MEDS ORDERED: SODIUM CHLORIDE 0.9% FLUSH 10 ML FLUSH IV FLUSH PRN (20:45)
[2017-09-05] MEDS ORDERED: oxyCODONE/ACETAMINOPHEN 5 MG/325 MG TAB PO PRN (20:45)
[2017-09-05] MEDS ORDERED: OXYTOCIN 30 UNITS-500ML PREMIX 500 ML IV ONE (20:45)
[2017-09-05] MEDS ORDERED: SODIUM CHLORIDE 0.9% FLUSH 10 ML FLUSH IV FLUSH SCH (21:00)
[2017-09-05] MEDS ORDERED: ACETAMINOPHEN 1000 MG/100 ML 100 ML IV ONE (21:13)
[2017-09-05] MEDS ORDERED: OXYTOCIN 30 UNITS-500ML PREMIX 500 ML ONE (21:57)
[2017-09-05] MEDS: KETOROLAC TROMETHAMINE 60 MG/2 ML (IM) VIAL IM PRN (22:32)
[2017-09-06] MEDS ORDERED: LACTATED RINGER'S 1000 ML INJ 1,000 ML IV SCH (01:39)
[2017-09-06 04:00] VITALS: BP 88/48; PULSE 82; RESP 18
[2017-09-06] MEDS: ACETAMINOPHEN 1000 MG/100 ML 100 ML IV SCH ×2 (04:54→14:12)
[2017-09-06] MEDS: LACTATED RINGER'S 1000 ML INJ 1,000 ML IV SCH (05:23)
[2017-09-06 06:06] LABS: AUTOMATED NEUTROPHIL # 8.6 TH/MM3 (1.8-7.7); BASOPHIL # 0.1 TH/MM3 (0-0.2); BASOPHIL % 0.5 % (0.0-2.0); EOSINOPHIL # 0.1 TH/MM3 (0-0.4); EOSINOPHIL % 0.8 % (0.0-4.0); HEMOGLOBIN 9.3 GM/DL (11.6-15.3); LYMPH % 21.6 % (9.0-44.0); LYMPHOCYTE # 2.6 TH/MM3 (1.0-4.8); MEAN CORPUSCULAR HEMOGLOBIN 28.1 PG (27.0-34.0); MEAN CORPUSCULAR HGB CONC 33.1 % (32.0-36.0); MEAN PLATELET VOLUME 8.8 FL (7.0-11.0); MONO % 6.5 % (0.0-8.0); MONOCYTE # 0.8 TH/MM3 (0-0.9); NEUT % 70.6 % (16.0-70.0); PLATELET COUNT 243 TH/MM3 (150-450); RED CELL DISTRIBUTION WIDTH 14.7 % (11.6-17.2); WHITE BLOOD COUNT 12.2 TH/MM3 (4.0-11.0)
[2017-09-06] MEDS ORDERED: OXYTOCIN 30 UNITS-500ML PREMIX 500 ML IV PRN (06:45)
[2017-09-06 08:00] VITALS: BP 96/55; PULSE 93; RESP 15; TEMP 98
[2017-09-06] MEDS: KETOROLAC TROMETHAMINE 60 MG/2 ML (IM) VIAL IM PRN (08:36)
--- NOTE | 2017-09-06 08:41 | HHI.OB ---
Subjective Post Operative Day: 1 Remarks Patient seen and examined this morning. Postoperative day #1. AF overnight. BPs ranging 80s-110s/40s-70s. Patient denies lightheadedness, vision changes, dizziness. She reports abdominal pain and discomfort last night. States her pain is slightly more tolerable this AM. Denies noticing any significant bleeding or drainage from incision site. Decreased lochia. Denies dysuria. She is feeding the baby via formula. Endorses flatus. No BMs yet. Not yet ambulating. She states she has stood up next to bid without difficulty. Denies fevers, calf pain, shortness of breath, or cough. She otherwise has no other complaints or concerns this morning. Objective Vitals/I&O Vital Signs Date Time Temp Pulse Resp B/P (MAP) Pulse Ox O2 Delivery O2 Flow Rate FiO2 09/06/17 08:00 98.0 93 15 96/55 (69) 09/06/17 04:00 82 18 88/48 (61) 09/05/17 22:45 97.8 09/05/17 22:45 72 18 96/55 (69) 09/05/17 21:37 97.6 09/05/17 21:35 16 09/05/17 21:33 74 110/71 (84) 100 09/05/17 21:23 16 09/05/17 21:22 78 105/66 (79) 100 09/05/17 21:05 81 103/56 (72) 09/05/17 21:05 22 100 09/05/17 20:45 101 21 94 09/05/17 20:45 118/61 (80) 09/05/17 20:43 94 09/05/17 20:42 17 09/05/17 20:42 109 09/05/17 20:41 110/58 (75) 09/05/17 20:40 97.4 09/05/17 19:10 97.8 Intake & Output 09/06/17 09/06/17 07:00 19:00 Intake Total 2100 ml Balance 2100 ml Intake IV Total 2100 ml Result Diagram: 09/06/17 0513 Objective Remarks GENERAL: Well-nourished, well-developed patient. CARDIOVASCULAR: Regular rate and rhythm without murmurs, gallops, or rubs. RESPIRATORY: Breath sounds equal bilaterally. No accessory muscle use. ABDOMEN/GI: Abdomen soft, non-tender, bowel sounds present. Incision: Clean, dry and intact. Fundus: Firm, non-tender at umbilicus. GENITOURINARY: Light to moderate bleeding. EXTREMITIES: No cyanosis or edema, non-tender, without signs of DVT. Medications and IVs Current Medications Medications (Trade) Dose Ordered Sig/Ximena Route Start Time Stop Time Status Last Admin Lactated Ringer's 1,000 ml @ 150 mls/hr Q6H40M IV 09/05/17 16:24 09/06/17 05:23 Cefazolin Sodium/ Dextrose 50 ml @ 100 mls/hr ROUTE DEL[employer]ERY SUPERVISOR IV 09/05/17 17:00 09/09/17 16:59 09/05/17 18:32 (Bicitra Liq) 30 ml ROUTE DELIVERY SUPERVISOR PO 09/05/17 17:30 09/09/17 17:29 09/05/17 18:32 Lactated Ringer's 1,000 ml @ 100 mls/hr Q10H IV 09/06/17 01:39 09/06/17 21:38 09/06/17 03:34 Oxytocin 500 ml @ 100 mls/hr UNSCH X1 PRN IV 09/06/17 06:45 09/07/17 06:44 (NS Flush) 2 ml BID IV FLUSH 09/05/17 21:00 (NS Flush) 2 ml UNSCH PRN IV FLUSH 09/05/17 20:45 Acetaminophen 100 ml @ 400 mls/hr Q8HR IV 09/05/17 22:00 09/06/17 14:14 09/06/17 04:54 (Toradol Inj) 30 mg Q6H PRN IM 09/05/17 20:45 09/05/17 22:32 (Percocet 5-325 Mg) 1 tab Q4H PRN PO 09/05/17 20:45 (Percocet 5-325 Mg) 2 tab Q4H PRN PO 09/05/17 20:45 (M-M-R Ii Inj) 0.5 ml ONCE ONCE SQ 09/06/17 16:00 09/06/17 16:01 (Boostrix Inj) 0.5 ml ONCE ONCE IM 09/06/17 16:00 09/06/17 16:01 (Zofran Inj) 4 mg Q6H PRN IV PUSH 09/05/17 20:45 Assessment/Plan Problem List: (1) Cocaine abuse affecting ICD Codes: O99.320 - Drug use complicating , unspecified trimester; F14.10 - Cocaine abuse, uncomplicated (2) 37 weeks gestation of ICD Codes: Z3A.37 - 37 weeks gestation of Assessment and Plan 36 year-old POD#1 s/p repeat . 1. Postoperative Care - Afebrile, continue to monitor vital signs - Incision c/d/i - PreOp Hgb 11.7 -> PostOp 9.3 - Percocet and Motrin prn pain - Encouraged OOB, as tolerated - Advised pelvic rest x 6 weeks - Formula feeding - Contraception: s/p BTL - F/u in 1 week with OB provider for incision check - Anticipate discharge home in 1-2 days 2. H/o cocaine use during - Case management consultation, possible DCF investigation dw Junito Agosto MD R2 Sep 06, 2017 08:41
[2017-09-06 12:00] VITALS: BP 123/88; PULSE 103; RESP 16; TEMP 97.3
[2017-09-06 16:00] VITALS: BP 111/64; PULSE 86; RESP 16; TEMP 97.6
[2017-09-06] MEDS ORDERED: MEASLES, MUMPS, RUBELLA VACCINE 0.5 ML VIAL SQ ONE (16:00)
[2017-09-06] MEDS ORDERED: DIPHTH/TETANUS/ACEL PERTUSSIS (BOOSTER) 0.5 ML VIAL/PFS IM ONE (16:00)
[2017-09-06] MEDS: oxyCODONE/ACETAMINOPHEN 5 MG/325 MG TAB PO PRN ×2 (17:40→21:33)
[2017-09-06 20:30] VITALS: BP 103/64; PULSE 88; RESP 16; TEMP 97.9
[2017-09-06] MEDS: IBUPROFEN 800 MG TAB PO PRN (21:34)
[2017-09-06] MEDS: diphenhydrAMINE HCL 25 MG CAP PO PRN (21:44)
[2017-09-07] MEDS: oxyCODONE/ACETAMINOPHEN 5 MG/325 MG TAB PO PRN ×3 (01:59→11:43)
[2017-09-07] MEDS: IBUPROFEN 800 MG TAB PO PRN (06:18)
--- NOTE | 2017-09-07 07:45 | HHI.OB ---
Subjective Post Operative Day: 2 Remarks Patient seen and examined this morning. Postoperative day #2. AF overnight. BPs stable, ranging 90s-120s/50s-80s past 24 hours. Patient states her pain is tolerable. Denies any bleeding or drainage from her incision site. Decreased lochia. Denies dysuria. No breast tenderness. She is feeding the baby via formula. Appetite good. No nausea or vomiting. Endorses flatus. Ambulating well without issues. Denies fevers, calf pain, shortness of breath, or cough. She otherwise has no other complaints or concerns this morning. Objective Vitals/I&O Vital Signs Date Time Temp Pulse Resp B/P (MAP) Pulse Ox O2 Delivery O2 Flow Rate FiO2 09/06/17 20:30 88 16 103/64 (77) 09/06/17 20:30 97.9 09/06/17 16:00 86 16 111/64 (80) 09/06/17 16:00 97.6 09/06/17 12:00 97.3 09/06/17 12:00 103 16 123/88 (100) 09/06/17 08:00 98.0 93 15 96/55 (69) Result Diagram: 09/06/17 0513 Objective Remarks GENERAL: Well-nourished, well-developed patient. CARDIOVASCULAR: Regular rate and rhythm without murmurs, gallops, or rubs. RESPIRATORY: Breath sounds equal bilaterally. No accessory muscle use. ABDOMEN/GI: Abdomen soft, non-tender, bowel sounds present. Incision: Clean, dry and intact. Fundus: Firm, mildly tender at umbilicus. GENITOURINARY: Light to moderate bleeding. EXTREMITIES: No cyanosis or edema, non-tender, without signs of DVT. Medications and IVs Current Medications Medications (Trade) Dose Ordered Sig/Ximena Route Start Time Stop Time Status Last Admin Lactated Ringer's 1,000 ml @ 150 mls/hr Q6H40M IV 09/05/17 16:24 09/06/17 05:23 Cefazolin Sodium/ Dextrose 50 ml @ 100 mls/hr GATEMAN IV 09/05/17 17:00 09/09/17 16:59 09/05/17 18:32 (Bicitra Liq) 30 ml GATEMAN PO 09/05/17 17:30 1/9/18 17:29 09/05/17 18:32 (NS Flush) 2 ml BID IV FLUSH 09/05/17 21:00 (NS Flush) 2 ml UNSCH PRN IV FLUSH 09/05/17 20:45 (Percocet 5-325 Mg) 1 tab Q4H PRN PO 09/05/17 20:45 (Percocet 5-325 Mg) 2 tab Q4H PRN PO 09/05/17 20:45 09/07/17 06:19 (Zofran Inj) 4 mg Q6H PRN IV PUSH 09/05/17 20:45 (Motrin) 800 mg Q8H PRN PO 09/06/17 18:45 09/07/17 06:18 (Benadryl) 25 mg Q6H PRN PO 09/06/17 21:45 09/06/17 21:44 (Flu (Quadrivalent) Vaccine Inj) 0.5 ml ONCE ONCE IM 09/07/17 09:00 09/07/17 09:01 Assessment/Plan Problem List: (1) Cocaine abuse affecting ICD Codes: O99.320 - Drug use complicating , unspecified trimester; F14.10 - Cocaine abuse, uncomplicated (2) 37 weeks gestation of ICD Codes: Z3A.37 - 37 weeks gestation of Assessment and Plan 36 year-old POD#2 s/p repeat . 1. Postoperative Care - Afebrile, vital signs stable - Incision c/d/i - PreOp Hgb 11.7 -> PostOp 9.3 - Percocet and Motrin prn pain - Encouraged OOB, as tolerated - Advised pelvic rest x 6 weeks - Formula feeding - Contraception: s/p BTL - F/u in 1 week with OB provider for incision check - Anticipate discharge home today or tomorrow 2. H/o cocaine use during - Case management consultation, possible DCF investigation [facility] Junito Davidson MD R2 Sep 07, 2017 07:45
--- NOTE | 2017-09-07 07:47 | HHI.DCPOC ---
Discharge Care Plan Diagnosis: (1) care following delivery Report Symptoms to Your Doctor -Temperature above 100.5 degrees -Redness, of incision or excessive or foul smelling drainage -Unusual pain or calf pain -Increased vaginal bleeding -Painful or difficulty urinating -Feelings of extreme sadness or anxiety after 2 weeks Goals to Promote Your Health * To maintain your health at the optimal level, follow up with your OB provider within one week after hospital discharge for an incision check. Directions to Meet Your Goals Take your medications as prescribed Follow your dietary instruction Follow activity as directed Ensure plenty of rest for recovery Drink fluids for hydration Keep your appointments as scheduled Take your immunizations and boosters as scheduled If your symptoms worsen call your PCP, if no PCP go to Urgent Care Center or Emergency Room Smoking is Dangerous to Your Health. Avoid second hand smoke Call the 24-hour crisis hotline for domestic abuse at Junito Davidson MD R2 Sep 07, 2017 07:47
[2017-09-07] MEDS ORDERED: SENN8.6T88 PO (07:51)
[2017-09-07] MEDS ORDERED: OXYC1TAB63 PO (07:51)
[2017-09-07] MEDS ORDERED: IBUP1TAB7 PO (07:51)
[2017-09-07 08:00] VITALS: BP 92/60; PULSE 84; RESP 20; TEMP 98.1; O2SAT 0
[2017-09-07] MEDS ORDERED: INFLUENZA VIRUS VACCINE (QUADRIVALENT) 0.5 ML SYR IM ONE (09:00)
[2017-09-07] MEDS: diphenhydrAMINE HCL 25 MG CAP PO PRN (11:48)
== END 2017-09-07 15:25 | disposition home or self-care (01) | DRG 765 ==
LOC: H2EB 15:12 → H1EA 22:02
PROVIDERS: ADMIT Obstetrics & Gynecology; ATTEND Obstetrics & Gynecology
PROC: 10D00Z1 Extraction of Products of Conception, Low, Open Approach (ICD-10-PCS; principal; 2017-09-05)
PROC: 0UB70ZZ Excision of Bilateral Fallopian Tubes, Open Approach (ICD-10-PCS; 2017-09-05)
DX: O34.219 Maternal care for unspecified type scar from previous cesarean delivery (principal); O99.324 Drug use complicating childbirth; F14.10 Cocaine abuse, uncomplicated; O99.334 Smoking (tobacco) complicating childbirth; F17.210 Nicotine dependence, cigarettes, uncomplicated; O46.93 Antepartum hemorrhage, unspecified, third trimester; Z37.0 Single live birth; Z3A.37 37 weeks gestation of pregnancy; Z30.2 Encounter for sterilization; Z23 Encounter for immunization
CPT/HCPCS: 59025; 80307; 81001; 82805; 85025; 86850; 86900; 86901; 87086; 88302; 88307; 90686; 90715; J0131; J0690; J1885; J2274; J2590; J3010; J7120; Q2038

== ENCOUNTER 2017-09-08 21:06 | Emergency (ER) | payer MEDICAID ==
[~2017-09-08 21:06] MED LIST changes: +IBUP1TAB7 PO; +OXYC1TAB63 PO; -PREN0.01 PO; +SENN8.6T88 PO
[2017-09-08 21:07] VITALS: BP 119/75; PULSE 104; RESP 16; TEMP 99; O2SAT 98
[2017-09-08 22:40] LABS: ALBUMIN 2.5 GM/DL (3.4-5.0); AST (GOT) 23 U/L (15-37); BICARBONATE 26.8 MEQ/L (21.0-32.0); BLOOD UREA NITROGEN 11 MG/DL (7-18); CALCIUM 8.2 MG/DL (8.5-10.1); CHLORIDE 107 MEQ/L (98-107); CREATININE 0.67 MG/DL (0.50-1.00); GLOMERULAR FILTRATION RATE 101 ML/MIN (>89); GLUCOSE,RANDOM 83 MG/DL (74-106); MAGNESIUM 2.2 MG/DL (1.5-2.5); SODIUM (NA) 140 MEQ/L (136-145)
[2017-09-08 22:41] LABS: ALT (GPT) 16 U/L (10-53)
[2017-09-08 22:43] LABS: ALKALINE PHOSPHATASE 99 U/L (45-117); TOTAL BILIRUBIN ADULT 0.2 MG/DL (0.2-1.0); TOTAL PROTEIN 6.3 GM/DL (6.4-8.2)
[2017-09-08 23:05] LABS: AUTOMATED NEUTROPHIL # 4.6 TH/MM3 (1.8-7.7); BASOPHIL # 0.1 TH/MM3 (0-0.2); BASOPHIL % 0.8 % (0.0-2.0); EOSINOPHIL # 0.2 TH/MM3 (0-0.4); EOSINOPHIL % 3.3 % (0.0-4.0); HEMATOCRIT 29.4 % (35.0-46.0); HEMOGLOBIN 9.9 GM/DL (11.6-15.3); LYMPH % 24.2 % (9.0-44.0); LYMPHOCYTE # 1.8 TH/MM3 (1.0-4.8); MEAN CELL VOLUME 86.2 FL (80.0-100.0); MEAN CORPUSCULAR HGB CONC 33.6 % (32.0-36.0); MEAN PLATELET VOLUME 8.7 FL (7.0-11.0); MONO % 8.2 % (0.0-8.0); MONOCYTE # 0.6 TH/MM3 (0-0.9); NEUT % 63.5 % (16.0-70.0); PLATELET COUNT 328 TH/MM3 (150-450); RED BLOOD COUNT 3.42 MIL/MM3 (4.00-5.30); RED CELL DISTRIBUTION WIDTH 15.1 % (11.6-17.2); WHITE BLOOD COUNT 7.3 TH/MM3 (4.0-11.0)
--- NOTE | 2017-09-09 20:03 | PD ---
HPI Chief Complaint: Medical Clearance Time Seen by Provider: 21:19 Travel History International Travel<30 days: No Contact w/Intl Traveler<30days: No Traveled to known affect area: No History of Present Illness HPI Pt is a 36-year-old female presented to emergency for evaluation of vaginal bleeding and peripheral edema. Patient also states she feels as if her abdomen is distended. She reports having a 2 days ago. She states she is passing clots. She denies any fever, chills, nausea, vomiting. She denies any preeclampsia and had a normal . She delivered her infant at 37 weeks. She further denies any shortness of breath or chest pain. She was advised to come to emergency department by her doctor. PFSH Past Medical History Anxiety: Yes Depression: No Cancer: No Cardiovascular Problems: No Diminished Hearing: No Endocrine: No Genitourinary: No Immune Disorder: No Musculoskeletal: Yes Neurologic: Yes (NEUROPATHY) Psychiatric: Yes Reproductive: No Respiratory: No ?: Not : 4 Para: 2 Miscarriage: 1 : 1 Past Surgical History Abdominal Surgery: Yes (AT 7 WEEKS OLD INGUINAL HERNIA REPAIR.) Pacemaker: No Other Surgery: Yes Social History Alcohol Use: Yes (occasional 1 drink or shot/month) Tobacco Use: Yes (10 pack years) Substance Use: Yes Allergies-Medications (Allergen,Severity, Reaction): Coded Allergies: No Known Allergies (Verified Adverse Reaction, Unknown, 09/10/17) Reported Meds & Prescriptions Reported Meds & Active Scripts Active Senna-Docusate Sodium Tablet (Sennosides/Docusate Sodium) 8.6 Mg-50 Mg Tablet 1 Tab PO BID Oxycodone-Acetaminophen 5-325 (Oxycodone HCl/Acetaminophen) 5 Mg-325 Mg Tablet 1 Tab PO Q4H PRN Ibuprofen 800 Mg Tab 800 Mg PO Q8H PRN Review of Systems Except as stated in HPI: all other systems reviewed are Neg General / Constitutional: No: Fever, Chills HENT: No: Headaches Cardiovascular: Positive: Edema, No: Chest Pain or Discomfort Respiratory: No: Shortness of Breath Gastrointestinal: Positive: Other (abdominal distention) Physical Exam Narrative GENERAL: Developed, well-nourished, alert female. Presenting in no acute distress. SKIN: Warm and dry. HEAD: Normocephalic. EYES: No scleral icterus. No injection or drainage. NECK: Supple, trachea midline. No JVD or lymphadenopathy. CARDIOVASCULAR: Regular rate. RESPIRATORY: No accessory muscle use. Data Data Last Documented VS Vital Signs Date Time Temp Pulse Resp B/P (MAP) Pulse Ox O2 Delivery O2 Flow Rate FiO2 09/08/17 21:07 99.0 104 16 119/75 (90) 98 Room Air Orders Orders Complete Blood Count With Diff (09/08/17 21:22) Comprehensive Metabolic Panel (09/08/17 21:22) B-Type Natriuretic Peptide (09/08/17 21:22) Magnesium (Mg) (09/08/17 21:22) Labs Laboratory Tests Test 09/08/17 21:54 White Blood Count 7.3 TH/MM3 Red Blood Count 3.42 MIL/MM3 Hemoglobin 9.9 GM/DL Hematocrit 29.4 % Mean Corpuscular Volume 86.2 FL Mean Corpuscular Hemoglobin 29.0 PG Mean Corpuscular Hemoglobin Concent 33.6 % Red Cell Distribution Width 15.1 % Platelet Count 328 TH/MM3 Mean Platelet Volume 8.7 FL Neutrophils (%) (Auto) 63.5 % Lymphocytes (%) (Auto) 24.2 % Monocytes (%) (Auto) 8.2 % Eosinophils (%) (Auto) 3.3 % Basophils (%) (Auto) 0.8 % Neutrophils # (Auto) 4.6 TH/MM3 Lymphocytes # (Auto) 1.8 TH/MM3 Monocytes # (Auto) 0.6 TH/MM3 Eosinophils # (Auto) 0.2 TH/MM3 Basophils # (Auto) 0.1 TH/MM3 CBC Comment DIFF FINAL Differential Comment Blood Urea Nitrogen 11 MG/DL Creatinine 0.67 MG/DL Random Glucose 83 MG/DL Total Protein 6.3 GM/DL Albumin 2.5 GM/DL Calcium Level 8.2 MG/DL Magnesium Level 2.2 MG/DL Alkaline Phosphatase 99 U/L Aspartate Amino Transf (AST/SGOT) 23 U/L Alanine Aminotransferase (ALT/SGPT) 16 U/L Total Bilirubin 0.2 MG/DL Sodium Level 140 MEQ/L Potassium Level 3.8 MEQ/L Chloride Level 107 MEQ/L Carbon Dioxide Level 26.8 MEQ/L Anion Gap 6 MEQ/L Estimat Glomerular Filtration Rate 101 ML/MIN B-Type Natriuretic Peptide 85 PG/ML MDM Medical Decision Making Medical Screen Exam Complete: Yes Emergency Medical Condition: Yes Interpretation(s) Vital Signs Date Time Temp Pulse Resp B/P (MAP) Pulse Ox O2 Delivery O2 Flow Rate FiO2 09/08/17 21:07 99.0 104 16 119/75 (90) 98 Room Air Differential Diagnosis CHF versus metabolic abnormality versus fluid retention versus other Narrative Course Patient is a 36-year-old female who is 2 days presenting for evaluation of edema. Patient is mildly tachycardic on arrival, she is well- appearing. Patient is awaiting bed placement. She presented to the triage desk stating that she could not longer wait that her ride was leaving and she needs to get home to her baby. She stated that she would come back, she was encouraged to stay and be evaluated. Patient further declined. Patient left AMA. AMA: The risks of leaving against medical advice without further evaluation treatment were discussed with the patient. These risks include cardiac dysfunction, cardiac dysrhythmia, possible heart attack, possible stroke or . The patient indicated understanding of these risks and appeared to have the capacity to make this decision. Diagnosis Primary Impression: Left against medical advice Disposition: 07 AGAINST MEDICAL ADVICE Alyssa Pollard Sep 09, 2017 20:03
== END 2017-09-09 00:36 | disposition left against medical advice (07) ==
LOC: NED 21:06
DX: O12.05 Gestational edema, complicating the puerperium (principal); R00.0 Tachycardia, unspecified; G62.9 Polyneuropathy, unspecified; O99.335 Smoking (tobacco) complicating the puerperium; Z79.899 Other long term (current) drug therapy
CPT/HCPCS: 80053; 83735; 83880; 85025; 99283

== ENCOUNTER 2017-09-10 15:29 | Emergency (ER) | payer MEDICAID ==
[~2017-09-10] VITALS: Ht 160 cm; Wt 68.0 kg
[2017-09-10 15:30] VITALS: BP 127/88; PULSE 92; RESP 18; TEMP 98.6; O2SAT 99
--- NOTE | 2017-09-10 16:30 | RADRPT ---
EXAM DATE/TIME: 09/10/2017 16:20 [facility] COMPARISON: No previous studies available for comparison. INDICATIONS : Patient complains of chest pain and shortness of breath status post on 09/05/17 MEDICAL HISTORY : None. SURGICAL HISTORY : None. ENCOUNTER: Initial ACUITY: 1 day PAIN SCORE: 6/10 LOCATION: chest FINDINGS: PA and lateral views of the chest demonstrate patchy densities right middle lobe. Heart normal in siz e. Left lung clear. The cardiomediastinal contours are unremarkable. Osseous structures are intact. CONCLUSION: Patchy densities right middle lobe to be atelectasis or infiltrate. Acosta Sylvester MD on September 10, 2017 at 16:27 Board Certified Radiologist. This report was verified electronically.
[2017-09-10 16:55] LABS: BACTERIA, URINE RARE /hpf; BILIRUBIN, URINE NEG (NEG); BLOOD, URINE MOD (NEG); GLUCOSE,URINE NEG (NEG); KETONE, URINE NEG (NEG); NITRITE,URINE NEG (NEG); SQUAMOUS EPITHELIAL CELL URINE 2 /hpf (0-5); URINE COLOR LIGHT-YELLOW (YELLW/STRAW); URINE LEUKOCYTE ESTERASE LARGE (NEG)
[2017-09-10 18:53] LABS: AUTOMATED NEUTROPHIL # 6.1 TH/MM3 (1.8-7.7); BASOPHIL % 0.2 % (0.0-2.0); EOSINOPHIL # 0.3 TH/MM3 (0-0.4); EOSINOPHIL % 3.2 % (0.0-4.0); HEMATOCRIT 31.9 % (35.0-46.0); HEMOGLOBIN 10.7 GM/DL (11.6-15.3); LYMPH % 22.8 % (9.0-44.0); LYMPHOCYTE # 2.1 TH/MM3 (1.0-4.8); MEAN CORPUSCULAR HEMOGLOBIN 28.8 PG (27.0-34.0); MEAN CORPUSCULAR HGB CONC 33.5 % (32.0-36.0); MEAN PLATELET VOLUME 8.1 FL (7.0-11.0); MONO % 6.4 % (0.0-8.0); MONOCYTE # 0.6 TH/MM3 (0-0.9); NEUT % 67.4 % (16.0-70.0); PLATELET COUNT 374 TH/MM3 (150-450); RED BLOOD COUNT 3.71 MIL/MM3 (4.00-5.30); RED CELL DISTRIBUTION WIDTH 15.3 % (11.6-17.2); WHITE BLOOD COUNT 9.1 TH/MM3 (4.0-11.0)
[2017-09-10 19:10] LABS: ALBUMIN 2.8 GM/DL (3.4-5.0); AST (GOT) 39 U/L (15-37); BICARBONATE 25.7 MEQ/L (21.0-32.0); BLOOD UREA NITROGEN 11 MG/DL (7-18); CALCIUM 8.9 MG/DL (8.5-10.1); CHLORIDE 103 MEQ/L (98-107); CREATININE 0.66 MG/DL (0.50-1.00); GLOMERULAR FILTRATION RATE 103 ML/MIN (>89); GLUCOSE,RANDOM 93 MG/DL (74-106); SODIUM (NA) 138 MEQ/L (136-145)
[2017-09-10 19:19] LABS: ALKALINE PHOSPHATASE 159 U/L (45-117); ALT (GPT) 43 U/L (10-53); TOTAL BILIRUBIN ADULT 0.2 MG/DL (0.2-1.0); TOTAL PROTEIN 6.8 GM/DL (6.4-8.2)
[2017-09-10] MEDS ORDERED: oxyCODONE/ACETAMINOPHEN 5 MG/325 MG TAB PO ONE (19:30)
--- NOTE | 2017-09-10 19:30 | RADRPT ---
EXAM DATE/TIME: 09/10/2017 19:00 [facility] COMPARISON: No previous studies available for comparison. INDICATIONS : Bilateral leg swelling. MEDICAL HISTORY : . Neuropathy. Anxiety. x 1. SURGICAL HISTORY : section.Inguinal hernia repair. ENCOUNTER: Initial ACUITY: 1 day PAIN SCORE: 1/10 LOCATION: Bilateral legs. TECHNIQUE: Venous ultrasound of the left and right leg was performed from the inguinal ligament to the proximal calf. Real-time, color Doppler and spectral tracing, compression and augmentation techniques were us ed. FINDINGS: RIGHT LEG: There is normal compressibility of the deep venous system from the inguinal region to the proximal ca lf. No echogenic clot is seen in the lumen of the common femoral, femoral, popliteal, and posterior tibial veins. There is a normal response of the venous system to proximal and distal augmentation an d respiration. LEFT LEG: There is normal compressibility of the deep venous system from the inguinal region to the proximal ca lf. No echogenic clot is seen in the lumen of the common femoral, femoral, popliteal, and posterior tibial veins. There is a normal response of the venous system to proximal and distal augmentation an d respiration. CONCLUSION: Normal examination. Aly Harris MD on September 10, 2017 at 19:27 Board Certified Radiologist. This report was verified electronically.
--- NOTE | 2017-09-10 20:21 | PD ---
HPI Chief Complaint: Edema Time Seen by Provider: 18:20 Travel History International Travel<30 days: No Contact w/Intl Traveler<30days: No Traveled to known affect area: No History of Present Illness HPI This is a 36-year-old female who presents to the emergency department on postop day 5 following a . She reports increasing lower extremity swelling and abdominal swelling, constant, moderate severity, worsening over the past day. She does have a history of cocaine use. She says she feels fatigued. She has had a little shortness of breath. PFSH Past Medical History Anxiety: Yes Depression: No Cancer: No Cardiovascular Problems: No Diminished Hearing: No Endocrine: No Genitourinary: No Immune Disorder: No Musculoskeletal: Yes Neurologic: Yes (NEUROPATHY) Psychiatric: Yes Reproductive: No Respiratory: No Tetanus Vaccination: < 5 Years Influenza Vaccination: Yes ?: Not : 4 Para: 2 Miscarriage: 1 : 1 Past Surgical History Abdominal Surgery: Yes (AT 7 WEEKS OLD INGUINAL HERNIA REPAIR.) Section: Yes (X2) Pacemaker: No Other Surgery: Yes Social History Alcohol Use: Yes (occasional 1 drink or shot/month) Tobacco Use: Yes (1/2 PPD) Substance Use: No Allergies-Medications (Allergen,Severity, Reaction): Coded Allergies: No Known Allergies (Verified Adverse Reaction, Unknown, 09/10/17) Reported Meds & Prescriptions Reported Meds & Active Scripts Active Senna-Docusate Sodium Tablet (Sennosides/Docusate Sodium) 8.6 Mg-50 Mg Tablet 1 Tab PO BID Oxycodone-Acetaminophen 5-325 (Oxycodone HCl/Acetaminophen) 5 Mg-325 Mg Tablet 1 Tab PO Q4H PRN Ibuprofen 800 Mg Tab 800 Mg PO Q8H PRN Review of Systems Except as stated in HPI: all other systems reviewed are Neg Physical Exam Narrative GENERAL:Well appearing, no acute distress SKIN: Incision along the lower abdomen is well healing with no surrounding erythema or induration HEAD: Atraumatic. Normocephalic. EYES: Pupils equal and round. No injection or drainage. ENT: Moist mucous membranes NECK: Trachea midline. CARDIOVASCULAR: Regular rate and rhythm. No murmur appreciated. RESPIRATORY: Clear to auscultation. Breath sounds equal bilaterally. GASTROINTESTINAL: Abdomen soft, non-tender, nondistended. MUSCULOSKELETAL: No obvious deformities. 2+ bilateral lower extremity edema. NEUROLOGICAL: Awake and alert. No obvious cranial nerve deficits. Moving all extremities. PSYCHIATRIC: Appropriate mood and affect; insight and judgment normal. Data Data Last Documented VS Vital Signs Date Time Temp Pulse Resp B/P (MAP) Pulse Ox O2 Delivery O2 Flow Rate FiO2 09/10/17 15:30 98.6 92 18 127/88 (101) 99 Room Air Orders Orders Urinalysis - C+S If Indicated (09/10/17 16:02) Chest, Pa & Lat (09/10/17 ) Urine Culture (09/10/17 16:00) Complete Blood Count With Diff (09/10/17 18:28) Comprehensive Metabolic Panel (09/10/17 18:28) ^ Insert Iv (09/10/17 18:28) Us Leg Venous Doppler Bilat (09/10/17 ) B-Type Natriuretic Peptide (09/10/17 18:28) Oxycodone-Acetamin 5-325 Mg (Percocet (09/10/17 19:30) Labs Laboratory Tests Test 09/10/17 16:00 09/10/17 18:30 Urine Color LIGHT-YELLOW Urine Turbidity CLEAR Urine pH 7.0 Urine Specific [place] 1.008 Urine Protein NEG mg/dL Urine Glucose (UA) NEG mg/dL Urine Ketones NEG mg/dL Urine Occult Blood MOD Urine Nitrite NEG Urine Bilirubin NEG Urine Urobilinogen LESS THAN 2.0 MG/DL Urine Leukocyte Esterase LARGE Urine RBC 7 /hpf Urine WBC 14 /hpf Urine Squamous Epithelial Cells 2 /hpf Urine Bacteria RARE /hpf Microscopic Urinalysis Comment CULTURE INDICATED White Blood Count 9.1 TH/MM3 Red Blood Count 3.71 MIL/MM3 Hemoglobin 10.7 GM/DL Hematocrit 31.9 % Mean Corpuscular Volume 86.0 FL Mean Corpuscular Hemoglobin 28.8 PG Mean Corpuscular Hemoglobin Concent 33.5 % Red Cell Distribution Width 15.3 % Platelet Count 374 TH/MM3 Mean Platelet Volume 8.1 FL Neutrophils (%) (Auto) 67.4 % Lymphocytes (%) (Auto) 22.8 % Monocytes (%) (Auto) 6.4 % Eosinophils (%) (Auto) 3.2 % Basophils (%) (Auto) 0.2 % Neutrophils # (Auto) 6.1 TH/MM3 Lymphocytes # (Auto) 2.1 TH/MM3 Monocytes # (Auto) 0.6 TH/MM3 Eosinophils # (Auto) 0.3 TH/MM3 Basophils # (Auto) 0.0 TH/MM3 CBC Comment DIFF FINAL Differential Comment Blood Urea Nitrogen 11 MG/DL Creatinine 0.66 MG/DL Random Glucose 93 MG/DL Total Protein 6.8 GM/DL Albumin 2.8 GM/DL Calcium Level 8.9 MG/DL Alkaline Phosphatase 159 U/L Aspartate Amino Transf (AST/SGOT) 39 U/L Alanine Aminotransferase (ALT/SGPT) 43 U/L Total Bilirubin 0.2 MG/DL Sodium Level 138 MEQ/L Potassium Level 4.0 MEQ/L Chloride Level 103 MEQ/L Carbon Dioxide Level 25.7 MEQ/L Anion Gap 9 MEQ/L Estimat Glomerular Filtration Rate 103 ML/MIN B-Type Natriuretic Peptide 114 PG/ML MDM Medical Decision Making Medical Screen Exam Complete: Yes Emergency Medical Condition: Yes Interpretation(s) Afebrile, mild tachycardia Anemia Electrolytes are reassuring BMP is 114 Urinalysis demonstrates some white blood cells Last 24 hours Impressions Lower Extremity Ultrasound 09/10/17 0000 Signed Impressions: Service Date/Time: Sunday, September 10, 2017 19:00 - CONCLUSION: Normal examination. Aly Harris MD Chest X-Ray 09/10/17 0000 Signed Impressions: Service Date/Time: Sunday, September 10, 2017 16:20 - CONCLUSION: Patchy densities right middle lobe to be atelectasis or infiltrate. Acosta Sylvester MD Differential Diagnosis Congestive heart failure, eclampsia, renal failure, electrolyte abnormality Narrative Course This is a 36-year-old female who presents to the emergency department with edema following 5 days ago. She is placed on a monitor and an IV was established. Her blood pressure is normal. Her kidney function is normal. Her BNP is indeterminate. Chest x-ray demonstrates some possible infiltrates versus atelectasis. Ultrasound is negative for DVT. She has no leukocytosis and she has no fevers so I think this is unlikely to be pneumonia. Given her reassuring blood work and labs I think she can follow-up as an outpatient. I suspect she has some volume retention following her surgical procedure and I advised her to elevate her legs, use compression stockings and follow up outpatient with her hydraulic blocker. Congestive heart failure is not completely excluded but seems unlikely in the setting of her findings here today. Diagnosis Primary Impression: Edema Qualified Codes: R60.9 - Edema, unspecified Patient Instructions: General Instructions Additional Instructions: If you develop severe chest pain, shortness of breath, sweating, lightheadedness , dizziness or difficulty breathing return to the emergency department immediately. Followup with your hydraulic blocker as soon as possible. Med/Other Pt SpecificInfo: No Change to Meds Disposition: 01 DISCHARGE HOME Condition: Stable Shannan Conrad MD Sep 10, 2017 20:21
== END 2017-09-10 20:57 | disposition home or self-care (01) ==
LOC: NEPD 15:29
DX: R60.9 Edema, unspecified (principal); R00.0 Tachycardia, unspecified; D64.9 Anemia, unspecified; B96.89 Other specified bacterial agents as the cause of diseases classified elsewhere; F17.210 Nicotine dependence, cigarettes, uncomplicated; Z98.890 Other specified postprocedural states
CPT/HCPCS: 71046; 80053; 81001; 83880; 85025; 87086; 93970; 99285

== ENCOUNTER 2017-10-08 22:37 | Emergency (ER) | payer MEDICAID ==
[~2017-10-08] VITALS: Ht 160 cm; Wt 65.0 kg
[2017-10-08 22:42] VITALS: BP 144/75; PULSE 105; RESP 16; TEMP 98.2; O2SAT 99
[2017-10-08] MEDS ORDERED: AMOX250C3 PO (22:54)
[2017-10-08 23:18] LABS: AUTOMATED NEUTROPHIL # 4.7 TH/MM3 (1.8-7.7); BASOPHIL # 0.1 TH/MM3 (0-0.2); BASOPHIL % 0.8 % (0.0-2.0); EOSINOPHIL # 0.2 TH/MM3 (0-0.4); EOSINOPHIL % 2.5 % (0.0-4.0); HEMATOCRIT 33.2 % (35.0-46.0); HEMOGLOBIN 11.6 GM/DL (11.6-15.3); LYMPH % 24.3 % (9.0-44.0); LYMPHOCYTE # 1.8 TH/MM3 (1.0-4.8); MEAN CELL VOLUME 82.9 FL (80.0-100.0); MEAN PLATELET VOLUME 7.2 FL (7.0-11.0); MONO % 9.5 % (0.0-8.0); MONOCYTE # 0.7 TH/MM3 (0-0.9); NEUT % 62.9 % (16.0-70.0); PLATELET COUNT 288 TH/MM3 (150-450); RED CELL DISTRIBUTION WIDTH 16.9 % (11.6-17.2); WHITE BLOOD COUNT 7.5 TH/MM3 (4.0-11.0)
[2017-10-08 23:33] LABS: BICARBONATE 28.4 MEQ/L (21.0-32.0); BLOOD UREA NITROGEN 6 MG/DL (7-18); CALCIUM 8.5 MG/DL (8.5-10.1); CHLORIDE 105 MEQ/L (98-107); CREATININE 0.73 MG/DL (0.50-1.00); GLOMERULAR FILTRATION RATE 91 ML/MIN (>89); GLUCOSE,RANDOM 105 MG/DL (74-106); SODIUM (NA) 140 MEQ/L (136-145)
[2017-10-08 23:35] LABS: BACTERIA, URINE RARE /hpf; BLOOD, URINE SMALL (NEG); GLUCOSE,URINE NEG (NEG); HYALINE CAST, URINE 3 /lpf (RARE); KETONE, URINE TRACE mg/dL (NEG); MUCUS URINE MANY /lpf (OCC); NITRITE,URINE NEG (NEG); PH, URINE 6.5 (5.0-8.5); SQUAMOUS EPITHELIAL CELL URINE 2 /hpf (0-5); TRICHOMONAS, URINE RARE; URINE COLOR YELLOW (YELLW/STRAW); URINE LEUKOCYTE ESTERASE LARGE (NEG); WHITE BLOOD CELL CLUMPS MANY
[2017-10-08 23:37] LABS: BILIRUBIN, URINE NEG (NEG)
[2017-10-09] MEDS ORDERED: DOXY100C PO (00:10)
[2017-10-09] MEDS ORDERED: VALT1TAB PO (00:10)
[2017-10-09] MEDS ORDERED: METR0.7528 VAGINAL (00:11)
[2017-10-09] MEDS ORDERED: KETOROLAC TROMETHAMINE 30 MG/ML (IVP) VIAL IV PUSH ONE (00:15)
[2017-10-09] MEDS ORDERED: cefTRIAXone INJ 1,000 MG in SODIUM CHLORIDE 0.9% INJ 100 ML IV ONE (00:15)
[2017-10-09] MEDS ORDERED: AZITHROMYCIN 250 MG TAB PO ONE (00:15)
--- NOTE | 2017-10-09 00:18 | PD ---
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 Patient is noted the symptoms for 2 days. Patient states she has not been sexually active. Patient is approximately 1 month after a of a single live at 37 weeks. Patient with history of substance use. Patient states she is not breast -feeding and infant is only formula fed. Patient does not report fever or chills. Patient had no nausea vomiting diarrhea. Patient denies other concerns or complaints. Patient had had some chest discomfort earlier but this has resolved. States developed this after she called her REGIONAL ADMINISTRATIVE ASSISTANT and she was told that her symptoms were normal. Patient was concerned that she might be prolapsing her uterus or her bladder. Patient is not in any type of mass in the vaginal groin area extruding from the vagina. No reported injury or trauma. PFSH Past Medical History Narrative Medical Anxiety, herniorrhaphy, alcohol use tobacco use substance use; nursing notes reviewed Anxiety: Yes Depression: No Cancer: No Cardiovascular Problems: No Diminished Hearing: No Endocrine: No Genitourinary: No Immune Disorder: No Musculoskeletal: Yes Neurologic: Yes (NEUROPATHY) Psychiatric: Yes Reproductive: No Respiratory: No Tetanus Vaccination: < 5 Years Influenza Vaccination: Yes ?: Not : 4 Para: 2 Miscarriage: 1 : 1 Past Surgical History Abdominal Surgery: Yes (AT 7 WEEKS OLD INGUINAL HERNIA REPAIR.) Section: Yes (X2) Pacemaker: No Other Surgery: Yes Social History Alcohol Use: Yes (occasional 1 drink or shot/month) Tobacco Use: Yes (1/2 PPD) Substance Use: Yes (COCAINE) Allergies-Medications (Allergen,Severity, Reaction): Coded Allergies: No Known Allergies (Verified Adverse Reaction, Unknown, 10/08/17) Reported Meds & Prescriptions Reported Meds & Active Scripts Active Ibuprofen 800 Mg Tab 800 Mg PO Q8H PRN Reported Amoxicillin 250 Mg Cap 250 Mg PO Q6HR Review of Systems Except as stated in HPI: all other systems reviewed are Neg Physical Exam Narrative GENERAL: Well-developed well-nourished female no acute distress or respiratory distress SKIN: Warm and dry. HEAD: Normocephalic. EYES: No scleral icterus. No injection or drainage. NECK: Supple, trachea midline. No JVD or lymphadenopathy. CARDIOVASCULAR: Regular rate and rhythm without murmurs, gallops, or rubs. RESPIRATORY: Breath sounds equal bilaterally. No accessory muscle use. GASTROINTESTINAL: Abdomen soft, non-tender, nondistended. Pelvic exam: External exam multiple ulcerative lesions over the labia markedly tender to palpation; speculum exam copious yellow discharge no blood no clots loss closed ; no uterine enlargement. Patient denies cervical motion tenderness. No mass no prolapsed bladder or uterus. MUSCULOSKELETAL: No cyanosis, or edema. BACK: Nontender without obvious deformity. No CVA tenderness. Data Data Last Documented VS Vital Signs Date Time Temp Pulse Resp B/P (MAP) Pulse Ox O2 Delivery O2 Flow Rate FiO2 10/08/17 22:42 98.2 105 16 144/75 (98) 99 Orders Orders Beta Hcg (Quant/Titer) (10/08/17 22:49) Complete Blood Count With Diff (10/08/17 22:49) Basic Metabolic Panel (Bmp) (10/08/17 22:49) Gc And Chlamydia Pcr (10/08/17 22:49) Wet Prep Profile (10/08/17 22:49) Urinalysis - C+S If Indicated (10/08/17 22:49) Iv Access Insert/Monitor (10/08/17 22:49) Herpes Simplex Virus Culture (10/08/17 22:49) Drug Screen, Random Urine (10/08/17 23:01) Urine Culture (10/08/17 23:05) Ketorolac Inj (Toradol Inj) (10/09/17 00:15) Ceftriaxone Inj (Rocephin Inj) (10/09/17 00:15) Azithromycin (Zithromax) (10/09/17 00:15) Labs Laboratory Tests Test 10/08/17 22:45 10/08/17 22:55 10/08/17 23:05 Clue Cells (Wet Prep) NONE SEEN Vaginal Trichomonas (Wet Prep) PRESENT Vaginal Yeast (Wet Prep) NONE SEEN White Blood Count 7.5 TH/MM3 Red Blood Count 4.00 MIL/MM3 Hemoglobin 11.6 GM/DL Hematocrit 33.2 % Mean Corpuscular Volume 82.9 FL Mean Corpuscular Hemoglobin 29.0 PG Mean Corpuscular Hemoglobin Concent 35.0 % Red Cell Distribution Width 16.9 % Platelet Count 288 TH/MM3 Mean Platelet Volume 7.2 FL Neutrophils (%) (Auto) 62.9 % Lymphocytes (%) (Auto) 24.3 % Monocytes (%) (Auto) 9.5 % Eosinophils (%) (Auto) 2.5 % Basophils (%) (Auto) 0.8 % Neutrophils # (Auto) 4.7 TH/MM3 Lymphocytes # (Auto) 1.8 TH/MM3 Monocytes # (Auto) 0.7 TH/MM3 Eosinophils # (Auto) 0.2 TH/MM3 Basophils # (Auto) 0.1 TH/MM3 CBC Comment DIFF FINAL Differential Comment Blood Urea Nitrogen 6 MG/DL Creatinine 0.73 MG/DL Random Glucose 105 MG/DL Calcium Level 8.5 MG/DL Sodium Level 140 MEQ/L Potassium Level 3.4 MEQ/L Chloride Level 105 MEQ/L Carbon Dioxide Level 28.4 MEQ/L Anion Gap 7 MEQ/L Estimat Glomerular Filtration Rate 91 ML/MIN Human Chorionic Gonadotropin, Quant LESS THAN 1 MIU/ML Urine Color YELLOW Urine Turbidity HAZY Urine pH 6.[address] [place] 1.023 Urine Protein 100 mg/dL Urine Glucose (UA) NEG mg/dL Urine Ketones TRACE mg/dL Urine Occult Blood SMALL Urine Nitrite NEG Urine Bilirubin NEG Urine Urobilinogen 4.0 MG/DL Urine Leukocyte Esterase LARGE Urine RBC 22 /hpf Urine WBC /hpf Urine WBC Clumps MANY Urine Squamous Epithelial Cells 2 /hpf Urine Bacteria RARE /hpf Urine Hyaline Casts 3 /lpf Urine Mucus MANY /lpf Urine Trichomonas RARE Microscopic Urinalysis Comment CULTURE INDICATED Urine Opiates Screen NEG Urine Barbiturates Screen NEG Urine Amphetamines Screen POS Urine Benzodiazepines Screen NEG Urine Cocaine Screen POS Urine Cannabinoids Screen NEG MDM Medical Decision Making Medical Screen Exam Complete: Yes Emergency Medical Condition: Yes Medical Record Reviewed: Yes Interpretation(s) Quantitative hCG: Negative Wet prep positive for Trichomonas Urine drug screen positive for amphetamines and cocaine Urinalysis positive for white blood cells and bacteria culture indicated CBC with automated differential grossly within normal limits Metabolic panel grossly within normal limits except for mild hypokalemia Differential Diagnosis Vaginal discharge, PID, STD, UTI, endometritis, cervicitis, Narrative Course Specimens collected and sent for resulting IV access obtained Quantitative hCG is negative Urinalysis is abnormal wet prep is abnormal patient with purulent vaginal discharge with ulcerative lesions to the labia consistent with genital herpes and PID/STD patient treated presumptively with Rocephin and azithromycin in the emergency department and given a prescription for Valtrex doxycycline and MetroGel vaginal as an outpatient. Patient is not breast-feeding and infant reportedly is being formula fed and mother informed of all concerns for exposing to antibiotics consumed by her being transferred to breastmilk if she decides to breast-feed she should not do this at all while she is taking these antibiotics and antiviral medications. Mother acknowledges understanding. Mother was also educated on the detrimental effects of substance ongoing substance abuse Diagnosis Primary Impression: Genital herpes Qualified Codes: A60.04 - Herpesviral vulvovaginitis Additional Impressions: STD (female) Substance abuse Referrals: Vertical Contour Band Saw Operator call for appointment Gordo Rowell 1 day Patient Instructions: General Instructions Additional Instructions: Discontinue substance abuse follow-up with [facility] Follow up with her BIOINFORMATICS SUPPORT SPECIALIST Do not have any sexual intercourse for any reason with anyone for 10 days and all partners need to be treated prior to resuming sexual relations Complete course of antibiotic and antiviral medications as prescribed Return to the emergency department for any concerns or change in condition Med/Other Pt SpecificInfo: Prescription(s) given Scripts Metronidazole Vaginal Gel (Metrogel Vaginal Gel) 0.75 % Gel 1 APPL VAGINAL HS for Infection, #1 TUBE 0 Refills Prov: Marce Washington MD 10/09/17 Doxycycline Hyclate (Doxycycline Hyclate) 100 Mg Cap 100 MG PO BID for Infection for 7 Days, #14 CAP 0 Refills Prov: Marce Washington MD 10/09/17 Valacyclovir (Valtrex) 1,000 Mg Tab 1000 MG PO BID for Mgmt Viral Infection for 7 Days, #2 TAB 0 Refills Prov: Marce Washington MD 10/09/17 Disposition: DISCHARGE HOME Condition: Stable Marce Washington MD Oct 09, 2017 00:18
== END 2017-10-09 01:02 | disposition home or self-care (01) ==
LOC: NEPC 22:37
DX: O86.13 Vaginitis following delivery (principal); A60.00 Herpesviral infection of urogenital system, unspecified; A59.9 Trichomoniasis, unspecified; F14.10 Cocaine abuse, uncomplicated; F15.10 Other stimulant abuse, uncomplicated; F17.210 Nicotine dependence, cigarettes, uncomplicated
CPT/HCPCS: 80048; 80307; 81001; 84702; 85025; 87086; 87210; 87255; 87491; 87591; 96374; 96375; 99284; J0696; J1885